=== PATIENT | female | born 1955 | race Caucasian/White ===

== ENCOUNTER 2020-02-21 12:33 | Inpatient (IN) | payer MEDICARE, MEDICAID ==
[2020-02-21] MEDS ORDERED: Vancomycin 1.5 GM in Sodium Chloride 0.9% 500 ML IV ONE (13:07)
[2020-02-21] MEDS ORDERED: Piperacillin/Tazobactam 4.5 GM in Sodium Chloride 0.9% 100 ML IV ONE (13:07)
[2020-02-21] MEDS ORDERED: Lactated Ringers 1,000 ML IV SCH (13:15)
--- NOTE | 2020-02-21 13:15 | EDM.PDOC ---
ED HPI GENERAL MEDICAL PROBLEM - General Chief Complaint: Lower Extremity Injury/Pain Stated Complaint: LEFT LEG SWOLLEN Time Seen by Provider: 02/21/20 12:40 Source of Information: Reports: Patient, Provider History Limitations: Reports: Altered Mental Status - History of Present Illness INITIAL COMMENTS - FREE TEXT/NARRATIVE: 64-year-old female history of intellectual disability, left tib-fib ORIF in 2009, presents with left leg pain and blistering for 2 days. She fell 5 days ago landing on her left knee. She normally ambulates with a walker. She denies fever, chills. She lives in a retirement. History is per caregiver. ROS: A 10-point review of systems, other than pertinent positives and negatives as stated per HPI, is otherwise negative PHYSICAL EXAM General: Alert at baseline, No distress HEENT: dry mucous membrane Neck: supple, no meningismus, no Kernig or Brudzinski Cardiac: S1S2 RRR Respiratory: CTAB, no crackles or rales, no wheezing Abdomen: Soft, nontender, no rebound or guarding, nondistended, no pulsatile mass. Back: nontender Musculoskeletal: NVI distally, left knee abrasion, left tib.fib diffusely tender with erythema and indurated with clear blisters of varying size Neuro: No focal deficits MEDICAL DECISION MAKING: I reviewed the patients past medical records, lab and radiographic findings. I discussed the case with family members. My differential diagnosis included: Cellulitis, necrotizing fasciitis. - Related Data Allergies Allergy/AdvReac Type Severity Reaction Status Date / Time No Known Allergies Allergy Verified 02/21/20 20:55 Home Meds: Home Meds Calcium Carbonate/Vitamin D3 [Calcium 600 + Vit D Tablet] 600 mg PO BID 11/07/16 [History] Divalproex Sodium [Depakote] 500 mg PO DAILY@14 11/07/16 [History] Escitalopram [Lexapro] 20 mg PO DAILY 11/07/16 [History] Fenofibrate Nanocrystallized [Tricor] 145 mg PO DAILY 11/07/16 [History] Lid Scrubs 1 pad TOP BID 11/07/16 [History] OLANZapine [ZyPREXA] 2.5 mg PO DAILY 11/07/16 [History] Polyethylene Glycol 3350 [MiraLAX] 8.5 gm PO DAILY 11/07/16 [History] Simvastatin [Zocor] 20 mg PO BEDTIME 11/07/16 [History] Sod,Ammonium,Potassium Lactate [Amlactin Ultra Body Cream] 1 unit TP BID PRN 11/07/16 [History] lamoTRIgine [Lamictal] 50 mg PO DAILY 11/07/16 [History] traZODone 50 mg PO BEDTIME 11/07/16 [History] Celecoxib [CeleBREX] 200 mg PO DAILY 02/21/20 [History] Diclofenac Sodium [Voltaren 1% Gel] 1 applic TP QID PRN 02/21/20 [History] Divalproex Sodium [Depakote] 750 mg PO DAILY 02/21/20 [History] Ezetimibe [Zetia] 10 mg PO DAILY 02/21/20 [History] Levothyroxine 125 mcg PO ACBREAKFAST 02/21/20 [History] OLANZapine [ZyPREXA] 10 mg PO DAILY@14 02/21/20 [History] OLANZapine [Zyprexa] 15 mg PO BEDTIME 02/21/20 [History] [place]-3/DHA/Epa/Fish Oil [Fish Oil 1,000 mg Softgel] 1,000 mg PO BID 02/21/20 [History] hydroCHLOROthiazide [Hydrochlorothiazide] 6.25 mg PO DAILY@08,12 02/21/20 [History] Sulfamethoxazole/Trimethoprim [Bactrim Ds Tablet] 1 each PO BID 5 Days #10 tablet 02/24/20 [Rx] Past Medical History HEENT History: Reports: Other (See Below) Other HEENT History: frequent eye infections, bilateral blindness Cardiovascular History: Reports: None Respiratory History: Reports: None Gastrointestinal History: Reports: None Genitourinary History: Reports: None [employer] History: Reports: None Musculoskeletal History: Reports: Arthritis, Fracture Neurological History: Reports: Other (See Below) Other Neuro History: developmentally disabled Psychiatric History: Reports: Dementia, Mood Swings, Other (See Below) Other Psychiatric History: self abusive behavior Endocrine/Metabolic History: Reports: Hypothyroidism Hematologic History: Reports: None Immunologic History: Reports: None Oncologic (Cancer) History: Reports: Breast Other Oncologic History: leiomyosarcoma- rt thigh, Retinobastoma, Dermatologic History: Reports: None - Infectious Disease History Infectious Disease History: Reports: None - Past Surgical History Head Surgeries/Procedures: Reports: None HEENT Surgical History: Reports: Cataract Surgery, Other (See Below) Other 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 Other Musculoskeletal Surgeries/Procedures:: tib/fib surgery Social & Family History - Family History Family Medical History: Noncontributory - Tobacco Use Smoking Status *Q: Never Smoker - Caffeine Use Caffeine Use: Reports: None - Recreational Drug Use Recreational Drug Use: No Review of Systems - Review of Systems Review Of Systems: See Below (see dictation) ED EXAM, GENERAL - Physical Exam Exam: See Below (see dictation) Course - Vital Signs Last Recorded V/S: Last Vital Signs Temp 98.1 F 02/24/20 07:55 Pulse 63 02/24/20 07:55 Resp 16 02/24/20 07:55 BP 111/68 02/24/20 07:55 Pulse Ox 96 02/24/20 07:55 - Orders/Labs/Meds Labs: Laboratory Tests 02/21/20 02/21/20 02/21/20 Range/Units 13:20 13:20 13:20 WBC 5.83 (4.0-11.0) K/uL RBC 4.37 (4.30-5.90) M/uL Hgb 13.2 (12.0-16.0) g/dL Hct 41.7 (36.0-46.0) % MCV 95.4 (80.0-98.0) fL MCH 30.2 (27.0-32.0) pg MCHC 31.7 (31.0-37.0) g/dL RDW Std Deviation 52.3 (28.0-62.0) fl RDW Coeff of Ct 15 (11.0-15.0) % Plt Count 143 L (150-400) K/uL MPV 9.00 (7.40-12.00) fL Neut % (Auto) 49.9 (48.0-80.0) % Lymph % (Auto) 37.6 (16.0-40.0) % [place] % (Auto) 9.4 (0.0-15.0) % Eos % (Auto) 2.6 (0.0-7.0) % Baso % (Auto) 0.5 (0.0-1.5) % Neut # (Auto) 2.9 (1.4-5.7) K/uL Lymph # (Auto) 2.2 (0.6-2.4) K/uL [place] # (Auto) 0.6 (0.0-0.8) K/uL Eos # (Auto) 0.2 (0.0-0.7) K/uL Baso # (Auto) 0.0 (0.0-0.1) K/uL Add Manual Diff Neutrophils % (Manual) (48.0-80.0) % Band Neutrophils % % Lymphocytes % (Manual) (16.0-40.0) % Monocytes % (Manual) (0.0-15.0) % Eosinophils % (Manual) (0.0-7.0) % Basophils % (Manual) (0.0-1.5) % Nucleated RBC % 0.0 /100WBC Absolute Seg Neuts (1.4-5.7) Band Neutrophils # Lymphocytes # (Manual) (0.6-2.4) Monocytes # (Manual) (0.0-0.8) Eosinophils # (Manual) (0.0-0.7) Basophils # (Manual) (0.0-0.1) Nucleated RBCs # 0 K/uL ESR 8 (0-29) mm/hr Lactate (0.20-2.00) mmol/L Sodium 144 (136-145) mmol/L Potassium 3.8 (3.5-5.1) mmol/L Chloride 104 (98-107) mmol/L Carbon Dioxide 33.9 H (21.0-32.0) mmol/L BUN 28 H (7.0-18.0) mg/dL Creatinine 1.1 H (0.6-1.0) mg/dL Est Cr Clr Drug Dosing 37.60 mL/min Estimated GFR (MDRD) 50.2 ml/min Glucose 104 (74-106) mg/dL Calcium 9.4 (8.5-10.1) mg/dL Total Bilirubin 0.3 (0.2-1.0) mg/dL AST 36 (15-37) IU/L ALT 43 (14-63) IU/L Alkaline Phosphatase 48 (46-116) U/L C-Reactive Protein 1.20 H (0.00-0.90) mg/dL B-Natriuretic Peptide (<100) PG/ML Total Protein 6.7 (6.4-8.2) g/dL Albumin 3.2 L (3.4-5.0) g/dL Globulin 3.5 (2.6-4.0) g/dL Albumin/Globulin Ratio 0.9 (0.9-1.6) Procalcitonin (<0.10) ng/mL 02/21/20 02/21/20 02/22/20 Range/Units 13:20 13:20 08:25 WBC 5.75 (4.0-11.0) K/uL RBC 4.61 (4.30-5.90) M/uL Hgb 14.2 (12.0-16.0) g/dL Hct 44.0 (36.0-46.0) % MCV 95.4 (80.0-98.0) fL MCH 30.8 (27.0-32.0) pg MCHC 32.3 (31.0-37.0) g/dL RDW Std Deviation 51.0 (28.0-62.0) fl RDW Coeff of Ct 15 (11.0-15.0) % Plt Count 143 L (150-400) K/uL MPV 9.20 (7.40-12.00) fL Neut % (Auto) (48.0-80.0) % Lymph % (Auto) (16.0-40.0) % [place] % (Auto) (0.0-15.0) % Eos % (Auto) (0.0-7.0) % Baso % (Auto) (0.0-1.5) % Neut # (Auto) (1.4-5.7) K/uL Lymph # (Auto) (0.6-2.4) K/uL [place] # (Auto) (0.0-0.8) K/uL Eos # (Auto) (0.0-0.7) K/uL Baso # (Auto) (0.0-0.1) K/uL Add Manual Diff YES Neutrophils % (Manual) 56 (48.0-80.0) % Band Neutrophils % 4 % Lymphocytes % (Manual) 31 (16.0-40.0) % Monocytes % (Manual) 5 (0.0-15.0) % Eosinophils % (Manual) 2 (0.0-7.0) % Basophils % (Manual) 2 H (0.0-1.5) % Nucleated RBC % /100WBC Absolute Seg Neuts 3.2 (1.4-5.7) Band Neutrophils # 0.2 Lymphocytes # (Manual) 1.8 (0.6-2.4) Monocytes # (Manual) 0.3 (0.0-0.8) Eosinophils # (Manual) 0.1 (0.0-0.7) Basophils # (Manual) 0.1 (0.0-0.1) Nucleated RBCs # K/uL ESR (0-29) mm/hr Lactate 1.1 (0.20-2.00) mmol/L Sodium (136-145) mmol/L Potassium (3.5-5.1) mmol/L Chloride (98-107) mmol/L Carbon Dioxide (21.0-32.0) mmol/L BUN (7.0-18.0) mg/dL Creatinine (0.6-1.0) mg/dL Est Cr Clr Drug Dosing mL/min Estimated GFR (MDRD) ml/min Glucose (74-106) mg/dL Calcium (8.5-10.1) mg/dL Total Bilirubin (0.2-1.0) mg/dL AST (15-37) IU/L ALT (14-63) IU/L Alkaline Phosphatase (46-116) U/L C-Reactive Protein (0.00-0.90) mg/dL B-Natriuretic Peptide (<100) PG/ML Total Protein (6.4-8.2) g/dL Albumin (3.4-5.0) g/dL Globulin (2.6-4.0) g/dL Albumin/Globulin Ratio (0.9-1.6) Procalcitonin 0.05 (<0.10) ng/mL 02/22/20 02/22/20 Range/Units 08:25 08:25 WBC (4.0-11.0) K/uL RBC (4.30-5.90) M/uL Hgb (12.0-16.0) g/dL Hct (36.0-46.0) % MCV (80.0-98.0) fL MCH (27.0-32.0) pg MCHC (31.0-37.0) g/dL RDW Std Deviation (28.0-62.0) fl RDW Coeff of Ct (11.0-15.0) % Plt Count (150-400) K/uL MPV (7.40-12.00) fL Neut % (Auto) (48.0-80.0) % Lymph % (Auto) (16.0-40.0) % [place] % (Auto) (0.0-15.0) % Eos % (Auto) (0.0-7.0) % Baso % (Auto) (0.0-1.5) % Neut # (Auto) (1.4-5.7) K/uL Lymph # (Auto) (0.6-2.4) K/uL [place] # (Auto) (0.0-0.8) K/uL Eos # (Auto) (0.0-0.7) K/uL Baso # (Auto) (0.0-0.1) K/uL Add Manual Diff Neutrophils % (Manual) (48.0-80.0) % Band Neutrophils % % Lymphocytes % (Manual) (16.0-40.0) % Monocytes % (Manual) (0.0-15.0) % Eosinophils % (Manual) (0.0-7.0) % Basophils % (Manual) (0.0-1.5) % Nucleated RBC % /100WBC Absolute Seg Neuts (1.4-5.7) Band Neutrophils # Lymphocytes # (Manual) (0.6-2.4) Monocytes # (Manual) (0.0-0.8) Eosinophils # (Manual) (0.0-0.7) Basophils # (Manual) (0.0-0.1) Nucleated RBCs # K/uL ESR (0-29) mm/hr Lactate (0.20-2.00) mmol/L Sodium 144 (136-145) mmol/L Potassium 4.1 (3.5-5.1) mmol/L Chloride 105 (98-107) mmol/L Carbon Dioxide 31.4 (21.0-32.0) mmol/L BUN 26 H (7.0-18.0) mg/dL Creatinine 1.1 H (0.6-1.0) mg/dL Est Cr Clr Drug Dosing 37.60 mL/min Estimated GFR (MDRD) 50.2 ml/min Glucose 121 H (74-106) mg/dL Calcium 9.3 (8.5-10.1) mg/dL Total Bilirubin 0.4 (0.2-1.0) mg/dL AST 42 H (15-37) IU/L ALT 40 (14-63) IU/L Alkaline Phosphatase 50 (46-116) U/L C-Reactive Protein (0.00-0.90) mg/dL B-Natriuretic Peptide 52 (<100) PG/ML Total Protein 6.8 (6.4-8.2) g/dL Albumin 3.3 L (3.4-5.0) g/dL Globulin 3.5 (2.6-4.0) g/dL Albumin/Globulin Ratio 0.9 (0.9-1.6) Procalcitonin (<0.10) ng/mL Meds: Medications Discontinued Medications Generic Name Dose Route Start Last Admin Trade Name Freq PRN Reason Stop Dose Admin Acetaminophen 325 mg 02/21/20 16:24 Tylenol PO Q6H PRN Pain Albuterol/Ipratropium 3 ml 02/21/20 15:51 02/21/20 15:59 Duoneb 3.0-0.5 Mg/3 Ml NEB 02/21/20 15:52 3 ml ONETIME ONE Administration Albuterol/Ipratropium Confirm 02/21/20 15:52 02/21/20 16:27 Duoneb 3.0-0.5 Mg/3 Ml Administered 02/21/20 15:53 Not Given Dose 3 ml .ROUTE .STK-MED ONE Divalproex Sodium 750 mg 02/22/20 09:00 02/24/20 08:25 Divalproex Sodium PO 750 mg DAILY DEDE Administration Divalproex Sodium 500 mg 02/22/20 14:00 02/23/20 14:10 Depakote PO 500 mg DAILY@1400 DEDE Administration Escitalopram Oxalate 20 mg 02/22/20 09:00 02/24/20 08:25 Lexapro PO 20 mg DAILY DEDE Administration Furosemide 40 mg 02/23/20 10:14 02/23/20 11:53 Lasix PO 02/23/20 10:15 40 mg ONETIME ONE Administration Heparin Sodium (Porcine) 5,000 units 02/21/20 16:30 02/24/20 04:42 Heparin Sodium SUBCUT 5,000 units Q12H DEDE Administration Hydrochlorothiazide 6.25 mg 02/22/20 08:00 Hydrochlorothiazide PO DAILY@0800,1200 [facility] Hydrochlorothiazide 6.25 mg 02/22/20 08:00 02/24/20 08:21 Hydrochlorothiazide PO 6.25 mg DAILY@0800,1200 DEDE Administration Lactated Ringer's 1,000 mls @ 500 mls/hr 02/21/20 13:15 02/21/20 13:49 Ringers, Lactated IV 500 mls/hr BOLUS DEDE Administration Piperacillin Sod/Tazobactam 100 mls @ 100 mls/hr 02/21/20 13:07 02/21/20 13:49 Sod 4.5 gm/ Sodium Chloride IV 02/21/20 14:06 100 mls/hr ONETIME ONE Administration Vancomycin HCl 1.5 gm/ Premix 300 mls @ 150 mls/hr 02/21/20 15:00 02/21/20 15:04 IV 02/21/20 16:59 150 mls/hr ONETIME ONE Administration Piperacillin Sod/Tazobactam 50 mls @ 100 mls/hr 02/21/20 20:00 02/24/20 08:18 Sod 3.375 gm/ Sodium Chloride IV 100 mls/hr Q6H DEDE Administration Vancomycin HCl 1 gm/ Sodium 250 mls @ 166.667 mls/hr 02/22/20 15:00 02/23/20 15:26 Chloride IV 166.667 mls/hr Q24H DEDE Administration Sodium Chloride 1,000 mls @ 100 mls/hr 02/21/20 16:55 02/21/20 18:43 Normal Saline IV 02/22/20 02:54 100 mls/hr CONTINUOUS ONE Administration Lamotrigine 50 mg 02/22/20 09:00 02/24/20 08:24 Lamotrigine PO 50 mg DAILY DEDE Administration Levothyroxine Sodium 125 mcg 02/22/20 07:30 02/24/20 06:42 Levothyroxine PO 125 mcg ACBREAKFAST DEDE Administration Lorazepam 2 mg 02/21/20 15:05 02/21/20 15:09 Ativan IVPUSH 02/21/20 15:06 2 mg ONETIME ONE Administration Lorazepam Confirm 02/21/20 15:06 02/21/20 15:13 Ativan Administered 02/21/20 15:07 Not Given Dose 2 mg .ROUTE .STK-MED ONE Lorazepam 1 mg 02/21/20 17:26 Ativan IVPUSH ONETIME PRN Agitation Olanzapine 2.5 mg 02/22/20 09:00 02/24/20 08:23 Zyprexa PO 2.5 mg DAILY DEDE Administration Olanzapine 10 mg 02/22/20 14:00 02/23/20 14:11 Zyprexa PO 10 mg DAILY@1400 DEDE Administration Olanzapine 15 mg 02/21/20 21:00 02/23/20 21:09 Zyprexa PO 15 mg BEDTIME DEDE Administration Sod,Ammonium, 1 each 02/21/20 17:02 Potassium Lactate [ TOP Amlactin Ultra Body BID PRN Cream] Dryness Polyethylene Glycol 8.5 gm 02/22/20 09:00 02/24/20 08:25 Miralax PO 8.5 gm DAILY DEDE Administration Simvastatin 20 mg 02/21/20 21:00 02/23/20 21:08 Zocor PO 20 mg BEDTIME DEDE Administration Trazodone HCl 50 mg 02/21/20 21:00 02/23/20 21:08 Trazodone PO 50 mg BEDTIME DEDE Administration Vancomycin HCl 1 dose 02/21/20 16:30 Pharmacy To Dose - Vancomycin .XX ASDIRECTED DEDE - Re-Assessments/Exams Free Text/Narrative Re-Assessment/Exam: 02/21/20 15:[address] Hayes, who agrees to assume care at this point. The hospitalist's documentation supersedes all other documentation on this patient with regard to any conflicts or discrepancies from this point forward. Any emergency conditions have been treated to the ability of the ED prior to admission. Departure - Departure Time of Disposition: 15:50 Disposition: Admitted As Inpatient 67 Condition: Good Clinical Impression: Cellulitis - Discharge Information *PRESCRIPTION DRUG MONITORING PROGRAM REVIEWED*: Not Applicable *COPY OF PRESCRIPTION DRUG MONITORING REPORT IN PATIENT ZORAN: Not Applicable Sepsis Event Note (ED) - Evaluation Sepsis Screening Result: No Definite Risk
[2020-02-21 14:09] LABS: CARBON DIOXIDE,CO2 33.9 mmol/L (21.0-32.0); POTASSIUM,K 3.8 mmol/L (3.5-5.1)
--- NOTE | 2020-02-21 14:27 | CT ---
CT left lower extremity Technique: Multiple axial sections were obtained through the left lower extremity inferior to the knee. Reconstructed coronal and sagittal images were obtained. Intravenous contrast not utilized. Findings: Diffuse subcutaneous edema is seen as well as skin thickening. Findings are most prominent above and around the ankle. Muse soft tissue findings are seen posteriorly. Joint space narrowing is seen within the lateral patellofemoral joint. No edema is seen within the muscles. Diffuse fatty infiltration is seen within the muscles. No acute bony abnormality is seen. Artifact noted from plate and screws within the distal tibia and fibula. Impression: 1. Diffuse subcutaneous edema as well as skin thickening. 2. Confluent soft tissue abnormality is seen posteriorly. Findings presumably represent diffuse edema and cellulitis. 3. No findings of soft tissue abscess. No findings of myositis. Diagnostic code #3 This report was dictated in MDT
[2020-02-21] MEDS ORDERED: LORazepam 2 MG/ML SDV IVPUSH ONE (15:05)
[2020-02-21] MEDS ORDERED: LORazepam 2 MG/ML SDV ONE (15:06)
[2020-02-21] MEDS ORDERED: Albuterol/Ipratropium 3.0-0.5 MG/3 ML Neb Soln NEB ONE (15:51)
[2020-02-21] MEDS ORDERED: Albuterol/Ipratropium 3.0-0.5 MG/3 ML Neb Soln ONE (15:52)
[2020-02-21] MEDS ORDERED: Acetaminophen 325 MG Tab PO PRN (16:24)
--- NOTE | 2020-02-21 16:26 | PCM.HP.2 ---
<Andria Ordaz - Last Filed: 02/22/20 17:54> H&P History of Present Illness - General Date of Service: 02/21/20 Admit Problem/Dx: Admission Diagnosis/Problem Admission Diagnosis/Problem Cellulitis Source of Information: Other (intermediate aide ) History Limitations: Reports: Other (Intellectual disability ) - History of Present Illness Initial Comments - Free Text/Narative: Patient is a 64-year-old female with a significant past medical history of moderate intellectual disability, previous left tib-fib status post ORIF in 2009 , mood disorder, hypothyroidism, leiomyosarcoma, retinoblastoma, hx of self- abuse NOS; presenting from [facility] ; presenting with left lower extremities redness swelling and pain. Per patient left leg started to hurt today after causing abrasion 2 days prior. Further history is being relayed to me via [facility] aide: States patient fell in the bathroom 2 days prior and noticed the redness today. Per nursing instructor: patient denied any fever , chills, body aches, other issues. ED course: X-ray lower extremity showed hardware in situ. CT of left lower extremity showed subcutaneous edema: Diffuse edema plus cellulitis; no concern for abscess formation at this time. Patient received 1 dose of vancomycin and Zosyn. Vitals stable. Patient was also being agitated; given 1 dose of Ativan. Per nursing instructor patient has received her psych meds for the day. Bedside: Information relayed to me via [facility] aide; no new information added. - Related Data Allergies/Adverse Reactions: Allergies Allergy/AdvReac Type Severity Reaction Status Date / Time No Known Allergies Allergy Verified 02/21/20 20:55 Home Medications: Home Meds Calcium Carbonate/Vitamin D3 [Calcium 600 + Vit D Tablet] 600 mg PO BID [History] Divalproex Sodium [Depakote] 500 mg PO DAILY@14 11/07/16 [History] Escitalopram [Lexapro] 20 mg PO DAILY 11/07/16 [History] Fenofibrate Nanocrystallized [Tricor] 145 mg PO DAILY 11/07/16 [History] Lid Scrubs 1 pad TOP BID 11/07/16 [History] OLANZapine [ZyPREXA] 2.5 mg PO DAILY 11/07/16 [History] Polyethylene Glycol 3350 [MiraLAX] 8.5 gm PO DAILY 11/07/16 [History] Simvastatin [Zocor] 20 mg PO BEDTIME 11/07/16 [History] Sod,Ammonium,Potassium Lactate [Amlactin Ultra Body Cream] 1 unit TP BID PRN [History] lamoTRIgine [Lamictal] 50 mg PO DAILY 11/07/16 [History] traZODone 50 mg PO BEDTIME 11/07/16 [History] Celecoxib [CeleBREX] 200 mg PO DAILY 02/21/20 [History] Diclofenac Sodium [Voltaren 1% Gel] 1 applic TP QID PRN 02/21/20 [History] Divalproex Sodium [Depakote] 750 mg PO DAILY 02/21/20 [History] Ezetimibe [Zetia] 10 mg PO DAILY 02/21/20 [History] Levothyroxine 125 mcg PO ACBREAKFAST 02/21/20 [History] OLANZapine [ZyPREXA] 10 mg PO DAILY@14 02/21/20 [History] OLANZapine [Zyprexa] 15 mg PO BEDTIME 02/21/20 [History] [place]-3/DHA/Epa/Fish Oil [Fish Oil 1,000 mg Softgel] 1,000 mg PO BID 02/21/20 [ History] hydroCHLOROthiazide [Hydrochlorothiazide] 6.25 mg PO DAILY@08,12 02/21/20 [ History] Sulfamethoxazole/Trimethoprim [Bactrim Ds Tablet] 1 each PO BID 5 Days #10 tablet 02/24/20 [Rx] Past Medical History HEENT History: Reports: Other (See Below) Other HEENT History: frequent eye infections, bilateral blindness Cardiovascular History: Reports: None Respiratory History: Reports: None Gastrointestinal History: Reports: None Genitourinary History: Reports: None RN ADMISSIONS History: Reports: None Musculoskeletal History: Reports: Arthritis, Fracture Neurological History: Reports: Other (See Below) Other Neuro History: developmentally disabled Psychiatric History: Reports: Dementia, Mood Swings, Other (See Below) Other Psychiatric History: self abusive behavior Endocrine/Metabolic History: Reports: Hypothyroidism Hematologic History: Reports: None Immunologic History: Reports: None Oncologic (Cancer) History: Reports: Breast Other Oncologic History: leiomyosarcoma- rt thigh, Retinobastoma, Dermatologic History: Reports: None - Infectious Disease History Infectious Disease History: Reports: None - Past Surgical History Head Surgeries/Procedures: Reports: None HEENT Surgical History: Reports: Cataract Surgery, Other (See Below) Other 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 Denies: Shortness of Breath, Pleuritic Chest Pain , Cough Cardiovascular: Reports: No Symptoms Gastrointestinal: Reports: No Symptoms Genitourinary: Reports: No Symptoms Musculoskeletal: Reports: Leg Pain Skin: Reports: Erythema Psychiatric: Reports: No Symptoms Neurological: Reports: Pre-Existing Deficit Exam - Exam Exam: See Below - Vital Signs Vital Signs: Last Vital Signs Temp 97.5 F 02/21/20 12:42 Pulse 68 02/21/20 12:42 Resp 18 02/21/20 12:42 BP 118/62 02/21/20 12:42 Pulse Ox 96 02/21/20 12:42 Weight: 74.843 kg - Exam Quality Assessment: No: Supplemental Oxygen General: Alert, Mild Distress HEENT: Other (baseline b/l eye loss ) Neck: Supple, Trachea Midline Lungs: Wheezing (possibly increasing effort 2ndary to anxiety when told she might stay in hospital ) Cardiovascular: Regular Rate, Regular Rhythm GI/Abdominal Exam: Soft, Non-Tender Skin: Other (Left lower extremity: erythema distal to left knee extending down into left ankle; redness in circumferential w. 2-3 small blister formations noticed on medial aspect. increasing warmth adn tenderness. +2 pitting edema; left ankle/foot chronic deformation ) Neuro Extensive - Mental Status: Alert - Patient Data Lab Results Last 24 hrs: Laboratory Results - last 24 hr 02/21/20 02/21/20 02/21/20 Range/Units 13:20 13:20 13:20 WBC 5.83 (4.0-11.0) K/uL RBC 4.37 (4.30-5.90) M/uL Hgb 13.2 (12.0-16.0) g/dL Hct 41.7 (36.0-46.0) % MCV 95.4 (80.0-98.0) fL MCH 30.2 (27.0-32.0) pg MCHC 31.7 (31.0-37.0) g/dL RDW Std Deviation 52.3 (28.0-62.0) fl RDW Coeff of Ct 15 (11.0-15.0) % Plt Count 143 L (150-400) K/uL MPV 9.00 (7.40-12.00) fL Neut % (Auto) 49.9 (48.0-80.0) % Lymph % (Auto) 37.6 (16.0-40.0) % [place] % (Auto) 9.4 (0.0-15.0) % Eos % (Auto) 2.6 (0.0-7.0) % Baso % (Auto) 0.5 (0.0-1.5) % Neut # (Auto) 2.9 (1.4-5.7) K/uL Lymph # (Auto) 2.2 (0.6-2.4) K/uL [place] # (Auto) 0.6 (0.0-0.8) K/uL Eos # (Auto) 0.2 (0.0-0.7) K/uL Baso # (Auto) 0.0 (0.0-0.1) K/uL Nucleated RBC % 0.0 /100WBC Nucleated RBCs # 0 K/uL ESR 8 (0-29) mm/hr Lactate (0.20-2.00) mmol/L Sodium 144 (136-145) mmol/L Potassium 3.8 (3.5-5.1) mmol/L Chloride 104 (98-107) mmol/L Carbon Dioxide 33.9 H (21.0-32.0) mmol/L BUN 28 H (7.0-18.0) mg/dL Creatinine 1.1 H (0.6-1.0) mg/dL Est Cr Clr Drug Dosing 37.60 mL/min Estimated GFR (MDRD) 50.2 ml/min Glucose 104 (74-106) mg/dL Calcium 9.4 (8.5-10.1) mg/dL Total Bilirubin 0.3 (0.2-1.0) mg/dL AST 36 (15-37) IU/L ALT 43 (14-63) IU/L Alkaline Phosphatase 48 (46-116) U/L C-Reactive Protein 1.20 H (0.00-0.90) mg/dL Total Protein 6.7 (6.4-8.2) g/dL Albumin 3.2 L (3.4-5.0) g/dL Globulin 3.5 (2.6-4.0) g/dL Albumin/Globulin Ratio 0.9 (0.9-1.6) 02/21/20 Range/Units 13:20 WBC (4.0-11.0) K/uL RBC (4.30-5.90) M/uL Hgb (12.0-16.0) g/dL Hct (36.0-46.0) % MCV (80.0-98.0) fL MCH (27.0-32.0) pg MCHC (31.0-37.0) g/dL RDW Std Deviation (28.0-62.0) fl RDW Coeff of Ct (11.0-15.0) % Plt Count (150-400) K/uL MPV (7.40-12.00) fL Neut % (Auto) (48.0-80.0) % Lymph % (Auto) (16.0-40.0) % [place] % (Auto) (0.0-15.0) % Eos % (Auto) (0.0-7.0) % Baso % (Auto) (0.0-1.5) % Neut # (Auto) (1.4-5.7) K/uL Lymph # (Auto) (0.6-2.4) K/uL [place] # (Auto) (0.0-0.8) K/uL Eos # (Auto) (0.0-0.7) K/uL Baso # (Auto) (0.0-0.1) K/uL Nucleated RBC % /100WBC Nucleated RBCs # K/uL ESR (0-29) mm/hr Lactate 1.1 (0.20-2.00) mmol/L Sodium (136-145) mmol/L Potassium (3.5-5.1) mmol/L Chloride (98-107) mmol/L Carbon Dioxide (21.0-32.0) mmol/L BUN (7.0-18.0) mg/dL Creatinine (0.6-1.0) mg/dL Est Cr Clr Drug Dosing mL/min Estimated GFR (MDRD) ml/min Glucose (74-106) mg/dL Calcium (8.5-10.1) mg/dL Total Bilirubin (0.2-1.0) mg/dL AST (15-37) IU/L ALT (14-63) IU/L Alkaline Phosphatase (46-116) U/L C-Reactive Protein (0.00-0.90) mg/dL Total Protein (6.4-8.2) g/dL Albumin (3.4-5.0) g/dL Globulin (2.6-4.0) g/dL Albumin/Globulin Ratio (0.9-1.6) Result Diagrams: 02/22/20 08:25 02/22/20 08:25 Piter Results Last 24 hrs: Microbiology 02/21/20 13:27 Anaerobic Blood Culture - Final Blood - Venous - Lab Draw Sepsis Event Note - Evaluation Sepsis Screening Result: No Definite Risk - Focused Exam Vital Signs: Vital Signs Temp Pulse Resp BP Pulse Ox 02/21/20 12:42 97.5 F 68 18 118/62 96 Date Exam was Performed: 02/22/20 Time Exam was Performed: 17:54 Problem List Initiated/Reviewed/Updated: Yes Orders Last 24hrs: Active Orders 24 hr Category Date Time Status Admission Status [Patient Status] [ADT] Stat ADT 02/21/20 14:56 Active RT Aerosol Therapy [RC] ASDIRECTED Care 02/21/20 15:51 Active Up With Assistance [RC] ASDIRECTED Care 02/21/20 16:25 Ordered Vital Signs [RC] PER UNIT ROUTINE Care 02/21/20 16:23 Ordered CULTURE BLOOD [BC] Stat Lab 02/21/20 13:20 Received CULTURE BLOOD [BC] Stat Lab 02/21/20 13:27 Results PROCALCITONIN [REF] Stat Lab 02/21/20 13:20 Received Acetaminophen [Tylenol] Med 02/21/20 16:24 Ordered 325 mg PO Q6H PRN Heparin Sodium Med 02/21/20 16:30 Ordered 5,000 units IVPUSH Q12H Lactated Ringers [Ringers, Lactated] 1,000 ml Med 02/21/20 13:15 Active IV BOLUS VANCOmycin/Water for INJ (PEG) [VANCOmycin 1.5 GM/300 Med 02/21/20 15:00 Active ML Premix] 1.5 gm Premix Bag 1 bag IV ONETIME Blood Culture x2 Reflex Set [OM.PC] Stat Oth 02/21/20 13:07 Ordered Medication Orders Acetaminophen (Tylenol) 325 mg PO Q6H PRN PRN Reason: Pain Heparin Sodium (Porcine) (Heparin Sodium) 5,000 units SUBCUT Q12H DEDE Lactated Ringer's (Ringers, Lactated) 1,000 mls @ 500 mls/hr IV BOLUS DEDE Last Admin: 02/21/20 13:49 Dose: 500 mls/hr Vancomycin HCl 1.5 gm/ Premix 300 mls @ 150 mls/hr IV ONETIME ONE Stop: 02/21/20 16:59 Last Admin: 02/21/20 15:04 Dose: 150 mls/hr Assessment/Plan Comment:: Assessment 1. Left lower extremity cellulitis with blister formation 2. Previous history of ORIF and corresponding limb in 2009 3. Past medical history of moderate intellectual disability, mood disorder, history of self abuse, history of retinoblastoma, hypothyroidism, anxiety. 4. Mild JAI. Plan Admit to observation. Code status: full code ; however awaiting records/ confirmation from [facility]. DVT: heparin subq 5000BID Omeprazole 20 bid vitals per routine. Up with assistance. Diet: regular Will continue home medications 1. LLE cellulitis: abscess formation r/o w. CT-scan; if pain worsening may consider U/S to DVT evaluation. Started pt. on Vancomycin+Zosyn for now; Blood cultures ordered. Lactate WNL, CBC WNL. Will continue to monitor for improvement 2. Moderate intellectual disability: continue home medications; will consider Ativan for agitation; aide states pt. can get agitated in new settings 3. Mild JAI: recheck CMP in AM. Hold Celebrex for now; continue IV maintenance fluids <Marielle Hayes - Last Filed: 02/27/20 14:52> H&P History of Present Illness - General Admit Problem/Dx: Admission Diagnosis/Problem Admission Diagnosis/Problem Cellulitis Exam - Vital Signs Vital Signs: Last Vital Signs Temp 36.7 C 02/24/20 07:55 Pulse 63 02/24/20 07:55 Resp 16 02/24/20 07:55 BP 111/68 02/24/20 07:55 Pulse Ox 96 02/24/20 07:55 - Patient Data Result Diagrams: 02/24/20 05:50 02/24/20 05:50 Piter Results Last 24 hrs: Microbiology 02/21/20 13:27 Aerobic Blood Culture - Final Blood - Venous - Lab Draw NO GROWTH AFTER 5 DAYS Anaerobic Blood Culture - Final 02/21/20 13:20 Aerobic Blood Culture - Final Blood - Venous NO GROWTH AFTER 5 DAYS Anaerobic Blood Culture - Final NO GROWTH AFTER 5 DAYS Assessment/Plan Comment:: I performed a history and physical exam of the patient and discussed management with resident. I have reviewed the residents note and agree with documented findings and plan unless otherwise specified in my note.
[2020-02-21] MEDS ORDERED: Sodium Chloride 0.9% 1,000 ML IV ONE (16:55)
[2020-02-21] MEDS ORDERED: [UNRECOGNIZED DRUG - OTHER] TOP PRN (17:02)
[2020-02-21] MEDS ORDERED: LORazepam 2 MG/ML SDV IVPUSH PRN (17:26)
[2020-02-21] MEDS: Heparin Sodium 5,000 Units/ML Vial SUBCUT SCH (18:53)
[2020-02-21] MEDS: Piperacillin/Tazobactam 3.375 GM in Sodium Chloride 0.9% 50 ML IV SCH (20:50)
[2020-02-21] MEDS: Simvastatin 20 MG Tab PO SCH (20:55)
[2020-02-21] MEDS: traZODone 50 MG Tab PO SCH (20:55)
[2020-02-21] MEDS: OLANZapine 5 MG Tab PO SCH (20:55)
[2020-02-22] MEDS: Piperacillin/Tazobactam 3.375 GM in Sodium Chloride 0.9% 50 ML IV SCH ×4 (01:07→22:16)
[2020-02-22] MEDS: Heparin Sodium 5,000 Units/ML Vial SUBCUT SCH ×2 (04:41→16:25)
[2020-02-22] MEDS: Levothyroxine 125 MCG Tab PO SCH (07:01)
[2020-02-22] MEDS: Hydrochlorothiazide 25 MG Tab PO SCH ×2 (07:53→13:11)
[2020-02-22] MEDS ORDERED: Hydrochlorothiazide 12.5 MG Cap PO SCH (08:00)
--- NOTE | 2020-02-22 08:47 | PCM.PN ---
- General Info Date of Service: 02/22/20 Subjective Update: Seen at bedside: not complaining of pain at this time. Labile mood;baseline for patient Requesting to go home at times Functional Status: Reports: Pain Controlled - Review of Systems General: Denies: No Symptoms, Fever, Weakness Pulmonary: Reports: No Symptoms Cardiovascular: Reports: No Symptoms Gastrointestinal: Reports: No Symptoms Genitourinary: Reports: No Symptoms Musculoskeletal: Reports: Leg Pain (improving ) Neurological: Reports: Pre-Existing Deficit Psychiatric: Reports: Other (mood lability ) - Patient Data Vitals - Most Recent: Last Vital Signs Temp 97.7 F 02/22/20 08:00 Pulse 76 02/22/20 08:00 Resp 20 02/22/20 08:00 BP 128/76 02/22/20 08:00 Pulse Ox 93 L 02/22/20 08:00 Weight - Most Recent: 79 kg I&O - Last 24 Hours: Intake & Output 02/21/20 02/22/20 02/22/20 22:59 06:59 14:59 Intake Total 1312 Output Total 600 Balance 712 Lab Results Last 24 Hours: Laboratory Results - last 24 hr 02/21/20 02/21/20 02/21/20 Range/Units 13:20 13:20 13:20 WBC 5.83 (4.0-11.0) K/uL RBC 4.37 (4.30-5.90) M/uL Hgb 13.2 (12.0-16.0) g/dL Hct 41.7 (36.0-46.0) % MCV 95.4 (80.0-98.0) fL MCH 30.2 (27.0-32.0) pg MCHC 31.7 (31.0-37.0) g/dL RDW Std Deviation 52.3 (28.0-62.0) fl RDW Coeff of Ct 15 (11.0-15.0) % Plt Count 143 L (150-400) K/uL MPV 9.00 (7.40-12.00) fL Neut % (Auto) 49.9 (48.0-80.0) % Lymph % (Auto) 37.6 (16.0-40.0) % [place] % (Auto) 9.4 (0.0-15.0) % Eos % (Auto) 2.6 (0.0-7.0) % Baso % (Auto) 0.5 (0.0-1.5) % Neut # (Auto) 2.9 (1.4-5.7) K/uL Lymph # (Auto) 2.2 (0.6-2.4) K/uL [place] # (Auto) 0.6 (0.0-0.8) K/uL Eos # (Auto) 0.2 (0.0-0.7) K/uL Baso # (Auto) 0.0 (0.0-0.1) K/uL Nucleated RBC % 0.0 /100WBC Nucleated RBCs # 0 K/uL ESR 8 (0-29) mm/hr Lactate (0.20-2.00) mmol/L Sodium 144 (136-145) mmol/L Potassium 3.8 (3.5-5.1) mmol/L Chloride 104 (98-107) mmol/L Carbon Dioxide 33.9 H (21.0-32.0) mmol/L BUN 28 H (7.0-18.0) mg/dL Creatinine 1.1 H (0.6-1.0) mg/dL Est Cr Clr Drug Dosing 37.60 mL/min Estimated GFR (MDRD) 50.2 ml/min Glucose 104 (74-106) mg/dL Calcium 9.4 (8.5-10.1) mg/dL Total Bilirubin 0.3 (0.2-1.0) mg/dL AST 36 (15-37) IU/L ALT 43 (14-63) IU/L Alkaline Phosphatase 48 (46-116) U/L C-Reactive Protein 1.20 H (0.00-0.90) mg/dL Total Protein 6.7 (6.4-8.2) g/dL Albumin 3.2 L (3.4-5.0) g/dL Globulin 3.5 (2.6-4.0) g/dL Albumin/Globulin Ratio 0.9 (0.9-1.6) 02/21/20 Range/Units 13:20 WBC (4.0-11.0) K/uL RBC (4.30-5.90) M/uL Hgb (12.0-16.0) g/dL Hct (36.0-46.0) % MCV (80.0-98.0) fL MCH (27.0-32.0) pg MCHC (31.0-37.0) g/dL RDW Std Deviation (28.0-62.0) fl RDW Coeff of Ct (11.0-15.0) % Plt Count (150-400) K/uL MPV (7.40-12.00) fL Neut % (Auto) (48.0-80.0) % Lymph % (Auto) (16.0-40.0) % [place] % (Auto) (0.0-15.0) % Eos % (Auto) (0.0-7.0) % Baso % (Auto) (0.0-1.5) % Neut # (Auto) (1.4-5.7) K/uL Lymph # (Auto) (0.6-2.4) K/uL [place] # (Auto) (0.0-0.8) K/uL Eos # (Auto) (0.0-0.7) K/uL Baso # (Auto) (0.0-0.1) K/uL Nucleated RBC % /100WBC Nucleated RBCs # K/uL ESR (0-29) mm/hr Lactate 1.1 (0.20-2.00) mmol/L Sodium (136-145) mmol/L Potassium (3.5-5.1) mmol/L Chloride (98-107) mmol/L Carbon Dioxide (21.0-32.0) mmol/L BUN (7.0-18.0) mg/dL Creatinine (0.6-1.0) mg/dL Est Cr Clr Drug Dosing mL/min Estimated GFR (MDRD) ml/min Glucose (74-106) mg/dL Calcium (8.5-10.1) mg/dL Total Bilirubin (0.2-1.0) mg/dL AST (15-37) IU/L ALT (14-63) IU/L Alkaline Phosphatase (46-116) U/L C-Reactive Protein (0.00-0.90) mg/dL Total Protein (6.4-8.2) g/dL Albumin (3.4-5.0) g/dL Globulin (2.6-4.0) g/dL Albumin/Globulin Ratio (0.9-1.6) Piter Results Last 24 Hours: Microbiology 02/21/20 13:27 Anaerobic Blood Culture - Final Blood - Venous - Lab Draw Med Orders - Current: Current Medications Acetaminophen (Tylenol) 325 mg PO Q6H PRN PRN Reason: Pain Divalproex Sodium (Divalproex Sodium) 750 mg PO DAILY [facility] Divalproex Sodium (Depakote) 500 mg PO DAILY@1400 [facility] Escitalopram Oxalate (Lexapro) 20 mg PO DAILY [facility] Heparin Sodium (Porcine) (Heparin Sodium) 5,000 units SUBCUT Q12H [facility] Last Admin: 02/22/20 04:41 Dose: 5,000 units Hydrochlorothiazide (Hydrochlorothiazide) 6.25 mg PO DAILY@0800,1200 [facility] Last Admin: 02/22/20 07:53 Dose: 6.25 mg Lactated Ringer's (Ringers, Lactated) 1,000 mls @ 500 mls/hr IV BOLUS [facility] Last Admin: 02/21/20 13:49 Dose: 500 mls/hr Piperacillin Sod/Tazobactam (Sod 3.375 gm/ Sodium Chloride) 50 mls @ 100 mls/ hr IV Q6H [facility] Last Admin: 02/22/20 07:15 Dose: 100 mls/hr Vancomycin HCl 1 gm/ Sodium (Chloride) 250 mls @ 166.667 mls/hr IV Q24H [facility] Lamotrigine (Lamotrigine) 50 mg PO DAILY [facility] Levothyroxine Sodium (Levothyroxine) 125 mcg PO ACBREAKFAST [facility] Last Admin: 02/22/20 07:01 Dose: 125 mcg Lorazepam (Ativan) 1 mg IVPUSH ONETIME PRN PRN Reason: Agitation Olanzapine (Zyprexa) 2.5 mg PO DAILY [facility] Olanzapine (Zyprexa) 10 mg PO DAILY@1400 [facility] Olanzapine (Zyprexa) 15 mg PO BEDTIME [facility] Last Admin: 02/21/20 20:55 Dose: 15 mg Sod,Ammonium, Potassium Lactate [ Amlactin Ultra Body Cream] 1 each TOP BID PRN PRN Reason: Dryness Polyethylene Glycol (Miralax) 8.5 gm PO DAILY [facility] Simvastatin (Zocor) 20 mg PO BEDTIME [facility] Last Admin: 02/21/20 20:55 Dose: 20 mg Trazodone HCl (Trazodone) 50 mg PO BEDTIME [facility] Last Admin: 02/21/20 20:55 Dose: 50 mg Vancomycin HCl (Pharmacy To Dose - Vancomycin) 1 dose .XX ASDIRECTED [facility]EDE Discontinued Medications Albuterol/Ipratropium (Duoneb 3.0-0.5 Mg/3 Ml) 3 ml NEB ONETIME ONE Stop: 02/21/20 15:52 Last Admin: 02/21/20 15:59 Dose: 3 ml Albuterol/Ipratropium (Duoneb 3.0-0.5 Mg/3 Ml) Confirm Administered Dose 3 ml .ROUTE .STK-MED ONE Stop: 02/21/20 15:53 Last Admin: 02/21/20 16:27 Dose: Not Given Hydrochlorothiazide (Hydrochlorothiazide) 6.25 mg PO DAILY@0800,1200 [facility] Piperacillin Sod/Tazobactam (Sod 4.5 gm/ Sodium Chloride) 100 mls @ 100 mls/hr IV ONETIME ONE Stop: 02/21/20 14:06 Last Admin: 02/21/20 13:49 Dose: 100 mls/hr Vancomycin HCl 1.5 gm/ Premix 300 mls @ 150 mls/hr IV ONETIME ONE Stop: 02/21/20 16:59 Last Admin: 02/21/20 15:04 Dose: 150 mls/hr Sodium Chloride (Normal Saline) 1,000 mls @ 100 mls/hr IV CONTINUOUS ONE Stop: 02/22/20 02:54 Last Admin: 02/21/20 18:43 Dose: 100 mls/hr Lorazepam (Ativan) 2 mg IVPUSH ONETIME ONE Stop: 02/21/20 15:06 Last Admin: 02/21/20 15:09 Dose: 2 mg Lorazepam (Ativan) Confirm Administered Dose 2 mg .ROUTE .STK-MED ONE Stop: 02/21/20 15:07 Last Admin: 02/21/20 15:13 Dose: Not Given - Exam Quality Assessment: No: Supplemental Oxygen General: Alert, Oriented, Other (lability of mood ; baseline ; no acute distress regarding pain of LLE ) Lungs: Clear to Auscultation, Normal Respiratory Effort Cardiovascular: Regular Rate, Regular Rhythm GI/Abdominal Exam: Soft Extremities: Other (left lower extremity: redness , swelling and blistering more or less unchanged from yesterday ) Neurological: No New Focal Deficit Psy/Mental Status: Labile Mood Sepsis Event Note - Evaluation Sepsis Screening Result: No Definite Risk - Focused Exam Vital Signs: Vital Signs Temp Pulse Resp BP Pulse Ox 02/22/20 08:00 97.7 F 76 20 128/76 93 L 02/22/20 04:00 97.5 F 63 20 127/80 95 02/22/20 00:26 97 F 57 L 22 H 125/71 93 L Date Exam was Performed: 02/22/20 Time Exam was Performed: 11:42 - Problem List Review Problem List Initiated/Reviewed/Updated: Yes - My Orders Last 24 Hours: My Active Orders 02/21/20 16:23 Vital Signs [RC] Q4H 02/21/20 16:24 Acetaminophen [Tylenol] 325 mg PO Q6H PRN 02/21/20 16:25 Up With Assistance [RC] ASDIRECTED 02/21/20 16:30 Heparin Sodium 5,000 units SUBCUT Q12H Pharmacy to Dose - Vancomycin 1 dose .XX ASDIRECTED 02/21/20 17:02 Patient's Own Medication [Ptom] 1 each TOP BID PRN 02/21/20 17:26 LORazepam [Ativan] 1 mg IVPUSH ONETIME PRN 02/21/20 20:00 Piperacillin/Tazobactam [Piperacil-Tazobact] 3.375 gm Sodium Chloride 0.9% [ Normal Saline] 50 ml IV Q6H 02/21/20 21:00 OLANZapine [ZyPREXA] 15 mg PO BEDTIME Simvastatin [Zocor] 20 mg PO BEDTIME traZODone 50 mg PO BEDTIME 02/21/20 Dinner Sodium Restricted Diet [DIET] 02/22/20 07:30 Levothyroxine 125 mcg PO ACBREAKFAST 02/22/20 08:00 hydroCHLOROthiazide 6.25 mg PO DAILY@0800,1200 02/22/20 08:25 CBC WITH AUTO DIFF [HEME] Stat COMPREHENSIVE METABOLIC PN,CMP [CHEM] Stat 02/22/20 09:00 Divalproex Sodium 750 mg PO DAILY Escitalopram [Lexapro] 20 mg PO DAILY OLANZapine [ZyPREXA] 2.5 mg PO DAILY lamoTRIgine 50 mg PO DAILY polyethylene glycoL 3350 [MiraLAX] 8.5 gm PO DAILY 02/22/20 14:00 Divalproex Sodium [Depakote] 500 mg PO DAILY@1400 OLANZapine [ZyPREXA] 10 mg PO DAILY@1400 02/22/20 15:00 Vancomycin [Vancocin] 1 gm Sodium Chloride 0.9% [Normal Saline (AdvBag)] 250 ml IV Q24H - Plan Plan:: Assessment 1. Left lower extremity cellulitis with blister formation 2. Previous history of ORIF and corresponding limb in 2009 3. Past medical history of moderate intellectual disability, mood disorder, history of self abuse, history of retinoblastoma, hypothyroidism, anxiety. 4. Mild JAI. Plan Admit to observation. Code status: full code ; however awaiting records/ confirmation from care home/guardian. Switched to inpatient status DVT: heparin subq 5000BID Omeprazole 20 bid vitals per routine. Up with assistance. Diet: regular Will continue home medications 1. LLE cellulitis: abscess formation r/o w. CT-scan; if pain worsening may consider U/S to DVT evaluation. Continue on Vancomycin+Zosyn for now; Blood cultures ordered. Lactate WNL, CBC WNL. Will continue to monitor for improvement 2. Moderate intellectual disability: continue home medications; will consider Ativan for agitation; aide states pt. can get agitated in new settings 3. Mild JAI: recheck CMP in AM. Hold Celebrex for now;
[2020-02-22] MEDS: Polyethylene Glycol 3350 Powder 17 GM Packet PO SCH (08:56)
[2020-02-22] MEDS: OLANZapine 5 MG Tab PO SCH ×3 (08:56→22:17)
[2020-02-22] MEDS: lamoTRIgine 25 MG Tab PO SCH (08:57)
[2020-02-22] MEDS: Escitalopram 10 MG Tab PO SCH (08:57)
[2020-02-22] MEDS: Divalproex Sodium Delayed-Release 250 MG Tab.CR PO SCH (08:58)
[2020-02-22 09:19] LABS: CARBON DIOXIDE,CO2 31.4 mmol/L (21.0-32.0); POTASSIUM,K 4.1 mmol/L (3.5-5.1)
[2020-02-22] MEDS: Divalproex Sodium Delayed-Release 500 MG Tab.CR PO SCH (14:13)
[2020-02-22] MEDS: traZODone 50 MG Tab PO SCH (22:16)
[2020-02-22] MEDS: Simvastatin 20 MG Tab PO SCH (22:16)
[2020-02-23] MEDS: Piperacillin/Tazobactam 3.375 GM in Sodium Chloride 0.9% 50 ML IV SCH ×4 (03:50→20:58)
[2020-02-23] MEDS: Heparin Sodium 5,000 Units/ML Vial SUBCUT SCH ×2 (03:52→17:09)
[2020-02-23 06:25] LABS: CARBON DIOXIDE,CO2 29.5 mmol/L (21.0-32.0)
[2020-02-23] MEDS: Levothyroxine 125 MCG Tab PO SCH (07:59)
[2020-02-23] MEDS: Hydrochlorothiazide 25 MG Tab PO SCH ×2 (07:59→11:53)
[2020-02-23] MEDS: Divalproex Sodium Delayed-Release 250 MG Tab.CR PO SCH (08:44)
[2020-02-23] MEDS: Polyethylene Glycol 3350 Powder 17 GM Packet PO SCH (08:45)
[2020-02-23] MEDS: lamoTRIgine 25 MG Tab PO SCH (08:45)
[2020-02-23] MEDS: Escitalopram 10 MG Tab PO SCH (08:45)
[2020-02-23] MEDS: OLANZapine 5 MG Tab PO SCH ×3 (08:46→21:09)
[2020-02-23] MEDS ORDERED: Furosemide 40 MG Tab PO ONE (10:14)
--- NOTE | 2020-02-23 11:30 | PCM.PN ---
- General Info Date of Service: 02/23/20 Subjective Update: No new complaints this AM - Review of Systems General: Reports: No Symptoms HEENT: Reports: No Symptoms Pulmonary: Reports: No Symptoms Cardiovascular: Reports: No Symptoms Gastrointestinal: Reports: No Symptoms Musculoskeletal: Reports: No Symptoms. Denies: Leg Pain Skin: Reports: No Symptoms Neurological: Reports: Pre-Existing Deficit - Patient Data Vitals - Most Recent: Last Vital Signs Temp 97.5 F 02/23/20 08:00 Pulse 63 02/23/20 08:00 Resp 20 02/23/20 08:00 BP 124/74 02/23/20 08:00 Pulse Ox 93 L 02/23/20 08:00 Weight - Most Recent: 74.843 kg I&O - Last 24 Hours: Intake & Output 02/22/20 02/23/20 02/23/20 22:59 06:59 14:59 Intake Total 1200 50 Balance 1200 50 Lab Results Last 24 Hours: Laboratory Results - last 24 hr 02/23/20 02/23/20 Range/Units 05:34 05:34 WBC 5.54 (4.0-11.0) K/uL RBC 4.08 L (4.30-5.90) M/uL Hgb 12.3 (12.0-16.0) g/dL Hct 39.1 (36.0-46.0) % MCV 95.8 (80.0-98.0) fL MCH 30.1 (27.0-32.0) pg MCHC 31.5 (31.0-37.0) g/dL RDW Std Deviation 53.3 (28.0-62.0) fl RDW Coeff of Ct 15 (11.0-15.0) % Plt Count 149 L (150-400) K/uL MPV 9.30 (7.40-12.00) fL Neut % (Auto) 46.2 L (48.0-80.0) % Lymph % (Auto) 38.4 (16.0-40.0) % [place] % (Auto) 10.5 (0.0-15.0) % Eos % (Auto) 4.2 (0.0-7.0) % Baso % (Auto) 0.7 (0.0-1.5) % Neut # (Auto) 2.6 (1.4-5.7) K/uL Lymph # (Auto) 2.1 (0.6-2.4) K/uL [place] # (Auto) 0.6 (0.0-0.8) K/uL Eos # (Auto) 0.2 (0.0-0.7) K/uL Baso # (Auto) 0.0 (0.0-0.1) K/uL Nucleated RBC % 0.0 /100WBC Nucleated RBCs # 0 K/uL Sodium 143 (136-145) mmol/L Potassium 4.0 (3.5-5.1) mmol/L Chloride 105 (98-107) mmol/L Carbon Dioxide 29.5 (21.0-32.0) mmol/L BUN 30 H (7.0-18.0) mg/dL Creatinine 1.2 H (0.6-1.0) mg/dL Est Cr Clr Drug Dosing 34.47 mL/min Estimated GFR (MDRD) 45.4 ml/min Glucose 121 H (74-106) mg/dL Calcium 8.8 (8.5-10.1) mg/dL Total Bilirubin 0.3 (0.2-1.0) mg/dL AST 45 H (15-37) IU/L ALT 27 (14-63) IU/L Alkaline Phosphatase 44 L (46-116) U/L Total Protein 6.3 L (6.4-8.2) g/dL Albumin 3.2 L (3.4-5.0) g/dL Globulin 3.8 (2.6-4.0) g/dL Albumin/Globulin Ratio 1.0 (0.9-1.6) Piter Results Last 24 Hours: Microbiology 02/21/20 13:27 Aerobic Blood Culture - Preliminary Blood - Venous - Lab Draw NO GROWTH AFTER 1 DAY Anaerobic Blood Culture - Final 02/21/20 13:20 Aerobic Blood Culture - Preliminary Blood - Venous NO GROWTH AFTER 1 DAY Anaerobic Blood Culture - Preliminary NO GROWTH AFTER 1 DAY Med Orders - Current: Current Medications Acetaminophen (Tylenol) 325 mg PO Q6H PRN PRN Reason: Pain Divalproex Sodium (Divalproex Sodium) 750 mg PO DAILY [facility] Last Admin: 02/23/20 08:44 Dose: 750 mg Divalproex Sodium (Depakote) 500 mg PO DAILY@1400 [facility] Last Admin: 02/22/20 14:13 Dose: 500 mg Escitalopram Oxalate (Lexapro) 20 mg PO DAILY [facility] Last Admin: 02/23/20 08:45 Dose: 20 mg Heparin Sodium (Porcine) (Heparin Sodium) 5,000 units SUBCUT Q12H [facility] Last Admin: 02/23/20 03:52 Dose: 5,000 units Hydrochlorothiazide (Hydrochlorothiazide) 6.25 mg PO DAILY@0800,1200 [facility] Last Admin: 02/23/20 07:59 Dose: 6.25 mg Lactated Ringer's (Ringers, Lactated) 1,000 mls @ 500 mls/hr IV BOLUS [facility] Last Admin: 02/21/20 13:49 Dose: 500 mls/hr Piperacillin Sod/Tazobactam (Sod 3.375 gm/ Sodium Chloride) 50 mls @ 100 mls/ hr IV Q6H [facility] Last Admin: 02/23/20 08:00 Dose: 100 mls/hr Vancomycin HCl 1 gm/ Sodium (Chloride) 250 mls @ 166.667 mls/hr IV Q24H [facility] Last Admin: 02/22/20 14:45 Dose: 166.667 mls/hr Lamotrigine (Lamotrigine) 50 mg PO DAILY [facility] Last Admin: 02/23/20 08:45 Dose: 50 mg Levothyroxine Sodium (Levothyroxine) 125 mcg PO ACBREAKFAST [facility] Last Admin: 02/23/20 07:59 Dose: 125 mcg Lorazepam (Ativan) 1 mg IVPUSH ONETIME PRN PRN Reason: Agitation Olanzapine (Zyprexa) 2.5 mg PO DAILY [facility] Last Admin: 02/23/20 08:46 Dose: 2.5 mg Olanzapine (Zyprexa) 10 mg PO DAILY@1400 [facility] Last Admin: 02/22/20 14:13 Dose: 10 mg Olanzapine (Zyprexa) 15 mg PO BEDTIME [facility] Last Admin: 02/22/20 22:17 Dose: 15 mg Sod,Ammonium, Potassium Lactate [ Amlactin Ultra Body Cream] 1 each TOP BID PRN PRN Reason: Dryness Polyethylene Glycol (Miralax) 8.5 gm PO DAILY [facility] Last Admin: 02/23/20 08:45 Dose: Not Given Simvastatin (Zocor) 20 mg PO BEDTIME [facility] Last Admin: 02/22/20 22:16 Dose: 20 mg Trazodone HCl (Trazodone) 50 mg PO BEDTIME [facility] Last Admin: 02/22/20 22:16 Dose: 50 mg Vancomycin HCl (Pharmacy To Dose - Vancomycin) 1 dose .XX ASDIRECTED [facility] Discontinued Medications Albuterol/Ipratropium (Duoneb 3.0-0.5 Mg/3 Ml) 3 ml NEB ONETIME ONE Stop: 02/21/20 15:52 Last Admin: 02/21/20 15:59 Dose: 3 ml Albuterol/Ipratropium (Duoneb 3.0-0.5 Mg/3 Ml) Confirm Administered Dose 3 ml .ROUTE .STK-MED ONE Stop: 02/21/20 15:53 Last Admin: 02/21/20 16:27 Dose: Not Given Furosemide (Lasix) 40 mg PO ONETIME ONE Stop: 02/23/20 10:15 Hydrochlorothiazide (Hydrochlorothiazide) 6.25 mg PO DAILY@0800,1200 [facility] Piperacillin Sod/Tazobactam (Sod 4.5 gm/ Sodium Chloride) 100 mls @ 100 mls/hr IV ONETIME ONE Stop: 02/21/20 14:06 Last Admin: 02/21/20 13:49 Dose: 100 mls/hr Vancomycin HCl 1.5 gm/ Premix 300 mls @ 150 mls/hr IV ONETIME ONE Stop: 02/21/20 16:59 Last Admin: 02/21/20 15:04 Dose: 150 mls/hr Sodium Chloride (Normal Saline) 1,000 mls @ 100 mls/hr IV CONTINUOUS ONE Stop: 02/22/20 02:54 Last Admin: 02/21/20 18:43 Dose: 100 mls/hr Lorazepam (Ativan) 2 mg IVPUSH ONETIME ONE Stop: 02/21/20 15:06 Last Admin: 02/21/20 15:09 Dose: 2 mg Lorazepam (Ativan) Confirm Administered Dose 2 mg .ROUTE .STK-MED ONE Stop: 02/21/20 15:07 Last Admin: 02/21/20 15:13 Dose: Not Given - Exam Quality Assessment: Supplemental Oxygen General: Alert, No Acute Distress HEENT: Mucous Membr. Moist/[place] Lungs: Clear to Auscultation, Normal Respiratory Effort Cardiovascular: Regular Rate, Regular Rhythm GI/Abdominal Exam: Soft, Non-Tender Back Exam: Full Range of Motion Extremities: Other (LLE: erythema improving and moving more infero-posteriorly since admission; blistering unchanged ; edema unchanged ) Skin: Warm Psy/Mental Status: Labile Mood Sepsis Event Note - Evaluation Sepsis Screening Result: No Definite Risk - Focused Exam Vital Signs: Vital Signs Temp Pulse Resp BP Pulse Ox 02/23/20 08:00 97.5 F 63 20 124/74 93 L 02/23/20 04:35 98.6 F 64 19 141/69 H 91 L 02/23/20 00:46 98 F 71 20 123/72 90 L Date Exam was Performed: 02/23/20 Time Exam was Performed: 11:32 - Problem List Review Problem List Initiated/Reviewed/Updated: Yes - My Orders Last 24 Hours: My Active Orders 02/22/20 10:44 Admission Status [Patient Status] [ADT] Routine 02/22/20 14:00 Divalproex Sodium [Depakote] 500 mg PO DAILY@1400 OLANZapine [ZyPREXA] 10 mg PO DAILY@1400 02/22/20 15:00 Vancomycin [Vancocin] 1 gm Sodium Chloride 0.9% [Normal Saline (AdvBag)] 250 ml IV Q24H 02/23/20 Breakfast Regular Diet [DIET] - Plan Plan:: Assessment 1. Left lower extremity cellulitis with blister formation 2. Previous history of ORIF and corresponding limb in 2009 3. Past medical history of moderate intellectual disability, mood disorder, history of self abuse, history of retinoblastoma, hypothyroidism, anxiety. 4. Mild JAI. Plan Admit to observation. Code status: full code ; however awaiting records/ confirmation from [facility]. DVT: heparin subq [id number] Omeprazole 20 bid vitals per routine. Up with assistance. Diet: regular Will continue home medications 1. LLE cellulitis: abscess formation r/o w. CT-scan; if pain worsening may consider U/S to DVT evaluation. Started pt. on Vancomycin+Zosyn for now; Blood cultures ordered. Lactate WNL, CBC WNL. Will continue to monitor for improvement Edema: one time PO dose of Lasix ordered to reduce swelling; will monitor 2. Moderate intellectual disability: continue home medications; will consider Ativan for agitation; aide states pt. can get agitated in new settings 3. Mild JAI: recheck CMP in AM. Hold Celebrex for now; continue IV maintenance fluids
[2020-02-23] MEDS: Divalproex Sodium Delayed-Release 500 MG Tab.CR PO SCH (14:10)
[2020-02-23] MEDS: traZODone 50 MG Tab PO SCH (21:08)
[2020-02-23] MEDS: Simvastatin 20 MG Tab PO SCH (21:08)
[2020-02-24] MEDS: Piperacillin/Tazobactam 3.375 GM in Sodium Chloride 0.9% 50 ML IV SCH ×2 (01:51→08:18)
[2020-02-24] MEDS: Heparin Sodium 5,000 Units/ML Vial SUBCUT SCH (04:42)
[2020-02-24 06:36] LABS: CARBON DIOXIDE,CO2 36.9 mmol/L (21.0-32.0); POTASSIUM,K 3.9 mmol/L (3.5-5.1)
[2020-02-24] MEDS: Levothyroxine 125 MCG Tab PO SCH (06:42)
[2020-02-24] MEDS: Hydrochlorothiazide 25 MG Tab PO SCH (08:21)
[2020-02-24] MEDS: OLANZapine 5 MG Tab PO SCH (08:23)
[2020-02-24] MEDS: lamoTRIgine 25 MG Tab PO SCH (08:24)
[2020-02-24] MEDS: Escitalopram 10 MG Tab PO SCH (08:25)
[2020-02-24] MEDS: Divalproex Sodium Delayed-Release 250 MG Tab.CR PO SCH (08:25)
[2020-02-24] MEDS: Polyethylene Glycol 3350 Powder 17 GM Packet PO SCH (08:25)
--- NOTE | 2020-02-24 14:05 | PCM.DCSUM1 ---
<Andria Ordaz - Last Filed: 02/24/20 13:58> Discharge Summary - Hospital Course Free Text/Narrative:: 64 y.o female w. moderate intellectual disability, PMH of retinoblastoma, ; presenting w. 2-3 days of LLE edema, redness and blister formation on the media- inferior aspect after scraping her skin/left alas in the bathroom 2-3 days prior.. pt. at baseline did have a ORIF of corresponding TIB/Fib. pt is a resident at [facility] and accompanied by her AIde. ED course: CT of lower extremity did not show any signs of subcutaneous air bubble formation ; pt started on Vancomycin and Zosyns. no leukocytosis appreciated. Hosiptal course: recived daily IV abs. w. interval imrpovemnt daily of erythema and blister formation Swelling however responded much slower and a dose of lasix PO 40 prescribed; day of dischargel redness, and swelling improved. Blood cultures negative and discharged ghome on BActrim. Based off antibiogram and clinical response; Bactrim prescribed w. follow up with PCP on upcoming . Creatinien elevation was appreciated on day 3 of admission but was deemed in response to the Concurrent use of IV vancomycin and Zosyn;l opt refused IV fluids at times and was agitated (intellecual diability) but was amenable with aide and nursing staff redirections and supervision. otherwise responded well to abx. and treatment and discharged in stable condition w. PO abx and close follow up. Aide agreed to plan agreed to discharge. - Discharge Data Discharge Date: 02/24/20 Discharge Disposition: Home, Self-Care 01 Condition: Stable - Referral to Home Health Primary Care Physician: Donna Bergeron DO - Patient Instructions Diet: Heart Healthy Diet Notify Provider of: Fever, Swelling and Redness, Drainage, Nausea and/or Vomiting - Discharge Plan *PRESCRIPTION DRUG MONITORING PROGRAM REVIEWED*: Not Applicable *COPY OF PRESCRIPTION DRUG MONITORING REPORT IN PATIENT ZORAN: Not Applicable Prescriptions/Med Rec: Sulfamethoxazole/Trimethoprim [Bactrim Ds Tablet] 1 each PO BID 5 Days #10 tablet Home Medications: Home Meds Calcium Carbonate/Vitamin D3 [Calcium 600 + Vit D Tablet] 600 mg PO BID [History] Divalproex Sodium [Depakote] 500 mg PO DAILY@14 11/07/16 [History] Escitalopram [Lexapro] 20 mg PO DAILY 11/07/16 [History] Fenofibrate Nanocrystallized [Tricor] 145 mg PO DAILY 11/07/16 [History] Lid Scrubs 1 pad TOP BID 11/07/16 [History] OLANZapine [ZyPREXA] 2.5 mg PO DAILY 11/07/16 [History] Polyethylene Glycol 3350 [MiraLAX] 8.5 gm PO DAILY 11/07/16 [History] Simvastatin [Zocor] 20 mg PO BEDTIME 11/07/16 [History] Sod,Ammonium,Potassium Lactate [Amlactin Ultra Body Cream] 1 unit TP BID PRN [History] lamoTRIgine [Lamictal] 50 mg PO DAILY 11/07/16 [History] traZODone 50 mg PO BEDTIME 11/07/16 [History] Celecoxib [CeleBREX] 200 mg PO DAILY 02/21/20 [History] Diclofenac Sodium [Voltaren 1% Gel] 1 applic TP QID PRN 02/21/20 [History] Divalproex Sodium [Depakote] 750 mg PO DAILY 02/21/20 [History] Ezetimibe [Zetia] 10 mg PO DAILY 02/21/20 [History] Levothyroxine 125 mcg PO ACBREAKFAST 02/21/20 [History] OLANZapine [ZyPREXA] 10 mg PO DAILY@14 02/21/20 [History] OLANZapine [Zyprexa] 15 mg PO BEDTIME 02/21/20 [History] Jackson-3/DHA/Epa/Fish Oil [Fish Oil 1,000 mg Softgel] 1,000 mg PO BID 02/21/20 [ History] hydroCHLOROthiazide [Hydrochlorothiazide] 6.25 mg PO DAILY@08,12 02/21/20 [ History] Sulfamethoxazole/Trimethoprim [Bactrim Ds Tablet] 1 each PO BID 5 Days #10 tablet 02/24/20 [Rx] Patient Handouts: Cellulitis, Adult, [id number], Sulfamethoxazole; Trimethoprim, SMX-TMP tablets Referrals: [facility] [Outside] Donna Bergeron DO [Primary Care Provider] - 03/01/20 9:45 am (Arrive 15 minutes with photo ID, insurance card, and discharge paperwork. If you are not early they will not see you. ) - Discharge Summary/Plan Comment DC Time >30 min.: No - Patient Data Vitals - Most Recent: Last Vital Signs Temp 98.1 F 02/24/20 07:55 Pulse 63 02/24/20 07:55 Resp 16 02/24/20 07:55 BP 111/68 02/24/20 07:55 Pulse Ox 96 02/24/20 07:55 Weight - Most Recent: 74.843 kg I&O - Last 24 hours: Intake & Output 02/23/20 02/24/20 02/24/20 22:59 06:59 14:59 Intake Total 350 1350 Output Total 1000 Balance 350 350 Lab Results - Last 24 hrs: Laboratory Results - last 24 hr 02/21/20 02/24/20 02/24/20 Range/Units 13: 05:50 05:50 WBC 6.72 (4.0-11.0) K/uL RBC 4.21 L (4.30-5.90) M/uL Hgb 12.5 (12.0-16.0) g/dL Hct 40.2 (36.0-46.0) % MCV 95.5 (80.0-98.0) fL MCH 29.7 (27.0-32.0) pg MCHC 31.1 (31.0-37.0) g/dL RDW Std Deviation 52.4 (28.0-62.0) fl RDW Coeff of Ct 15 (11.0-15.0) % Plt Count 162 (150-400) K/uL MPV 9.20 (7.40-12.00) fL Neut % (Auto) 46.6 L (48.0-80.0) % Lymph % (Auto) 39.6 (16.0-40.0) % [place] % (Auto) 9.5 (0.0-15.0) % Eos % (Auto) 3.7 (0.0-7.0) % Baso % (Auto) 0.6 (0.0-1.5) % Neut # (Auto) 3.1 (1.4-5.7) K/uL Lymph # (Auto) 2.7 H (0.6-2.4) K/uL [place] # (Auto) 0.6 (0.0-0.8) K/uL Eos # (Auto) 0.3 (0.0-0.7) K/uL Baso # (Auto) 0.0 (0.0-0.1) K/uL Nucleated RBC % 0.0 /100WBC Nucleated RBCs # 0 K/uL Sodium 143 (136-145) mmol/L Potassium 3.9 (3.5-5.1) mmol/L Chloride 103 (98-107) mmol/L Carbon Dioxide 36.9 H (21.0-32.0) mmol/L BUN 33 H (7.0-18.0) mg/dL Creatinine 1.4 H (0.6-1.0) mg/dL Est Cr Clr Drug Dosing 29.54 mL/min Estimated GFR (MDRD) 38.0 ml/min Glucose 91 (74-106) mg/dL Calcium 9.2 (8.5-10.1) mg/dL Total Bilirubin 0.3 (0.2-1.0) mg/dL AST 34 (15-37) IU/L ALT 34 (14-63) IU/L Alkaline Phosphatase 45 L (46-116) U/L Total Protein 6.4 (6.4-8.2) g/dL Albumin 3.0 L (3.4-5.0) g/dL Globulin 3.4 (2.6-4.0) g/dL Albumin/Globulin Ratio 0.9 (0.9-1.6) Procalcitonin 0.05 (<0.10) ng/mL CAR[facility]OS Results - Last 24 hrs: Microbiology 02/21/20 13:27 Aerobic Blood Culture - Preliminary Blood - Venous - Lab Draw NO GROWTH AFTER 3 DAYS Anaerobic Blood Culture - Final 02/21/20 13:20 Aerobic Blood Culture - Preliminary Blood - Venous NO GROWTH AFTER 3 DAYS Anaerobic Blood Culture - Preliminary NO GROWTH AFTER 3 DAYS Med Orders - Current: Current Medications Discontinued Medications Acetaminophen (Tylenol) 325 mg PO Q6H PRN PRN Reason: Pain Albuterol/Ipratropium (Duoneb 3.0-0.5 Mg/3 Ml) 3 ml NEB ONETIME ONE Stop: 02/21/20 15:52 Last Admin: 02/21/20 15:59 Dose: 3 ml Albuterol/Ipratropium (Duoneb 3.0-0.5 Mg/3 Ml) Confirm Administered Dose 3 ml .ROUTE .STK-MED ONE Stop: 02/21/20 15:53 Last Admin: 02/21/20 16:27 Dose: Not Given Divalproex Sodium (Divalproex Sodium) 750 mg PO DAILY [facility] Last Admin: 02/24/20 08:25 Dose: 750 mg Divalproex Sodium (Depakote) 500 mg PO DAILY@1400 [facility] Last Admin: 02/23/20 14:10 Dose: 500 mg Escitalopram Oxalate (Lexapro) 20 mg PO DAILY [facility] Last Admin: 02/24/20 08:25 Dose: 20 mg Furosemide (Lasix) 40 mg PO ONETIME ONE Stop: 02/23/20 10:15 Last Admin: 02/23/20 11:53 Dose: 40 mg Heparin Sodium (Porcine) (Heparin Sodium) 5,000 units SUBCUT Q12H [facility] Last Admin: 02/24/20 04:42 Dose: 5,000 units Hydrochlorothiazide (Hydrochlorothiazide) 6.25 mg PO DAILY@0800,1200 [facility] Hydrochlorothiazide (Hydrochlorothiazide) 6.25 mg PO DAILY@0800,1200 [facility] Last Admin: 02/24/20 08:21 Dose: 6.25 mg Lactated Ringer's (Ringers, Lactated) 1,000 mls @ 500 mls/hr IV BOLUS [facility] Last Admin: 02/21/20 13:49 Dose: 500 mls/hr Piperacillin Sod/Tazobactam (Sod 4.5 gm/ Sodium Chloride) 100 mls @ 100 mls/hr IV ONETIME ONE Stop: 02/21/20 14:06 Last Admin: 02/21/20 13:49 Dose: 100 mls/hr Vancomycin HCl 1.5 gm/ Premix 300 mls @ 150 mls/hr IV ONETIME ONE Stop: 02/21/20 16:59 Last Admin: 02/21/20 15:04 Dose: 150 mls/hr Piperacillin Sod/Tazobactam (Sod 3.375 gm/ Sodium Chloride) 50 mls @ 100 mls/ hr IV Q6H [facility] Last Admin: 02/24/20 08:18 Dose: 100 mls/hr Vancomycin HCl 1 gm/ Sodium (Chloride) 250 mls @ 166.667 mls/hr IV Q24H [facility] Last Admin: 02/23/20 15:26 Dose: 166.667 mls/hr Sodium Chloride (Normal Saline) 1,000 mls @ 100 mls/hr IV CONTINUOUS ONE Stop: 02/22/20 02:54 Last Admin: 02/21/20 18:43 Dose: 100 mls/hr Lamotrigine (Lamotrigine) 50 mg PO DAILY [facility] Last Admin: 02/24/20 08:24 Dose: 50 mg Levothyroxine Sodium (Levothyroxine) 125 mcg PO ACBREAKFAST [facility] Last Admin: 02/24/20 06:42 Dose: 125 mcg Lorazepam (Ativan) 2 mg IVPUSH ONETIME ONE Stop: 02/21/20 15:06 Last Admin: 02/21/20 15:09 Dose: 2 mg Lorazepam (Ativan) Confirm Administered Dose 2 mg .ROUTE .STK-MED ONE Stop: 02/21/20 15:07 Last Admin: 02/21/20 15:13 Dose: Not Given Lorazepam (Ativan) 1 mg IVPUSH ONETIME PRN PRN Reason: Agitation Olanzapine (Zyprexa) 2.5 mg PO DAILY [facility] Last Admin: 02/24/20 08:23 Dose: 2.5 mg Olanzapine (Zyprexa) 10 mg PO DAILY@1400 [facility] Last Admin: 02/23/20 14:11 Dose: 10 mg Olanzapine (Zyprexa) 15 mg PO BEDTIME [facility] Last Admin: 02/23/20 21:09 Dose: 15 mg Sod,Ammonium, Potassium Lactate [ Amlactin Ultra Body Cream] 1 each TOP BID PRN PRN Reason: Dryness Polyethylene Glycol (Miralax) 8.5 gm PO DAILY [facility] Last Admin: 02/24/20 08:25 Dose: 8.5 gm Simvastatin (Zocor) 20 mg PO BEDTIME [facility] Last Admin: 02/23/20 21:08 Dose: 20 mg Trazodone HCl (Trazodone) 50 mg PO BEDTIME [facility] Last Admin: 02/23/20 21:08 Dose: 50 mg Vancomycin HCl (Pharmacy To Dose - Vancomycin) 1 dose .XX ASDIRECTED [facility] <Delfino Castellano J - Last Filed: 02/26/20 14:06> Discharge Summary - Referral to Home Health Primary Care Physician: Donna Bergeron DO - Patient Data Vitals - Most Recent: Last Vital Signs Temp 36.7 C 02/24/20 07:55 Pulse 63 02/24/20 07:55 Resp 16 02/24/20 07:55 BP 111/68 02/24/20 07:55 Pulse Ox 96 02/24/20 07:55 [facility]LOS Results - Last 24 hrs: Microbiology 02/21/20 13:27 Aerobic Blood Culture - Final Blood - Venous - Lab Draw NO GROWTH AFTER 5 DAYS Anaerobic Blood Culture - Final 02/21/20 13:20 Aerobic Blood Culture - Final Blood - Venous NO GROWTH AFTER 5 DAYS Anaerobic Blood Culture - Final NO GROWTH AFTER 5 DAYS Med Orders - Current: Current Medications Discontinued Medications Acetaminophen (Tylenol) 325 mg PO Q6H PRN PRN Reason: Pain Albuterol/Ipratropium (Duoneb 3.0-0.5 Mg/3 Ml) 3 ml NEB ONETIME ONE Stop: 02/21/20 15:52 Last Admin: 02/21/20 15:59 Dose: 3 ml Albuterol/Ipratropium (Duoneb 3.0-0.5 Mg/3 Ml) Confirm Administered Dose 3 ml .ROUTE .STK-MED ONE Stop: 02/21/20 15:53 Last Admin: 02/21/20 16:27 Dose: Not Given Divalproex Sodium (Divalproex Sodium) 750 mg PO DAILY [facility] Last Admin: 02/24/20 08:25 Dose: 750 mg Divalproex Sodium (Depakote) 500 mg PO DAILY@1400 [facility] Last Admin: 02/23/20 14:10 Dose: 500 mg Escitalopram Oxalate (Lexapro) 20 mg PO DAILY [facility] Last Admin: 02/24/20 08:25 Dose: 20 mg Furosemide (Lasix) 40 mg PO ONETIME ONE Stop: 02/23/20 10:15 Last Admin: 02/23/20 11:53 Dose: 40 mg Heparin Sodium (Porcine) (Heparin Sodium) 5,000 units SUBCUT Q12H [facility] Last Admin: 02/24/20 04:42 Dose: 5,000 units Hydrochlorothiazide (Hydrochlorothiazide) 6.25 mg PO DAILY@0800,1200 [facility] Hydrochlorothiazide (Hydrochlorothiazide) 6.25 mg PO DAILY@0800,1200 [facility] Last Admin: 02/24/20 08:21 Dose: 6.25 mg Lactated Ringer's (Ringers, Lactated) 1,000 mls @ 500 mls/hr IV BOLUS [facility] Last Admin: 02/21/20 13:49 Dose: 500 mls/hr Piperacillin Sod/Tazobactam (Sod 4.5 gm/ Sodium Chloride) 100 mls @ 100 mls/hr IV ONETIME ONE Stop: 02/21/20 14:06 Last Admin: 02/21/20 13:49 Dose: 100 mls/hr Vancomycin HCl 1.5 gm/ Premix 300 mls @ 150 mls/hr IV ONETIME ONE Stop: 02/21/20 16:59 Last Admin: 02/21/20 15:04 Dose: 150 mls/hr Piperacillin Sod/Tazobactam (Sod 3.375 gm/ Sodium Chloride) 50 mls @ 100 mls/ hr IV Q6H [facility] Last Admin: 02/24/20 08:18 Dose: 100 mls/hr Vancomycin HCl 1 gm/ Sodium (Chloride) 250 mls @ 166.667 mls/hr IV Q24H [facility] Last Admin: 02/23/20 15:26 Dose: 166.667 mls/hr Sodium Chloride (Normal Saline) 1,000 mls @ 100 mls/hr IV CONTINUOUS ONE Stop: 02/22/20 02:54 Last Admin: 02/21/20 18:43 Dose: 100 mls/hr Lamotrigine (Lamotrigine) 50 mg PO DAILY [facility] Last Admin: 02/24/20 08:24 Dose: 50 mg Levothyroxine Sodium (Levothyroxine) 125 mcg PO ACBREAKFAST [facility] Last Admin: 02/24/20 06:42 Dose: 125 mcg Lorazepam (Ativan) 2 mg IVPUSH ONETIME ONE Stop: 02/21/20 15:06 Last Admin: 02/21/20 15:09 Dose: 2 mg Lorazepam (Ativan) Confirm Administered Dose 2 mg .ROUTE .STK-MED ONE Stop: 02/21/20 15:07 Last Admin: 02/21/20 15:13 Dose: Not Given Lorazepam (Ativan) 1 mg IVPUSH ONETIME PRN PRN Reason: Agitation Olanzapine (Zyprexa) 2.5 mg PO DAILY [facility] Last Admin: 02/24/20 08:23 Dose: 2.5 mg Olanzapine (Zyprexa) 10 mg PO DAILY@1400 [facility] Last Admin: 02/23/20 14:11 Dose: 10 mg Olanzapine (Zyprexa) 15 mg PO BEDTIME [facility] Last Admin: 02/23/20 21:09 Dose: 15 mg Sod,Ammonium, Potassium Lactate [ Amlactin Ultra Body Cream] 1 each TOP BID PRN PRN Reason: Dryness Polyethylene Glycol (Miralax) 8.5 gm PO DAILY [facility] Last Admin: 02/24/20 08:25 Dose: 8.5 gm Simvastatin (Zocor) 20 mg PO BEDTIME [facility] Last Admin: 02/23/20 21:08 Dose: 20 mg Trazodone HCl (Trazodone) 50 mg PO BEDTIME [facility] Last Admin: 02/23/20 21:08 Dose: 50 mg Vancomycin HCl (Pharmacy To Dose - Vancomycin) 1 dose .XX ASDIRECTED [facility] - Free Text/Narrative Note: I have seen and evaluated the patient with the resident. I have discussed findings and treatment plan with resident. I agree with the assessment and plan as outlined in the following note.
== END 2020-02-24 12:30 | disposition home or self-care (01) | DRG 603 ==
LOC: MW.ED 12:33 → MW.MS 14:56 → OBSVTOIN 02-22 10:44 → MW.MS 02-22 10:45
PROVIDERS: ADMIT Student in an Organized Health Care Education/Training Program; ATTEND Student in an Organized Health Care Education/Training Program
DX: L03.116 Cellulitis of left lower limb (principal); Z87.81 Personal history of (healed) traumatic fracture; N17.9 Acute kidney failure, unspecified; E03.9 Hypothyroidism, unspecified; F39 Unspecified mood [affective] disorder; F03.90 Unspecified dementia, unspecified severity, without behavioral disturbance, psychotic disturbance, mood disturbance, and anxiety; H54.7 Unspecified visual loss; H54.3 Unqualified visual loss, both eyes; M19.90 Unspecified osteoarthritis, unspecified site; F71 Moderate intellectual disabilities; Z85.831 Personal history of malignant neoplasm of soft tissue; F41.9 Anxiety disorder, unspecified; Z85.3 Personal history of malignant neoplasm of breast; Z98.49 Cataract extraction status, unspecified eye; Z79.890 Hormone replacement therapy; Z79.899 Other long term (current) drug therapy; Z85.840 Personal history of malignant neoplasm of eye
CPT/HCPCS: 36415 ×2; 73700; 80053 ×2; 83605; 83880; 84145; 85025 ×2; 85652; 86140; 87040 ×2; 94640; 96365; 96366; 96367; 96372 ×2; 96375; 96376 ×2; 99284; A9270 ×10; G0378 ×2; J1644 ×2; J2060; J2543 ×4; J3370; J7030; J7050 ×4; J7120; 99283; J7620-GY

== ENCOUNTER 2020-05-08 13:16 | Emergency (ER) | payer MEDICARE, MEDICAID, OTHER ==
[2020-05-08] MEDS ORDERED: Sodium Chloride 0.9% 2.5 ML Syringe FLUSH PRN (13:27)
[2020-05-08] MEDS ORDERED: Sodium Chloride 0.9% 10 ML Syringe FLUSH PRN (13:27)
--- NOTE | 2020-05-08 13:32 | EDM.PDOC ---
ED HPI GENERAL MEDICAL PROBLEM - General Chief Complaint: Respiratory Problem Stated Complaint: SOB Time Seen by Provider: 05/08/20 13:21 Source of Information: Reports: Other (Staff at retirement) History Limitations: Reports: Physical Impairment, Other (Mental illness, developmental delay) - History of Present Illness INITIAL COMMENTS - FREE TEXT/NARRATIVE: History of present illness: 64-year-old female presenting with difficulty breathing since this morning, increased work of breathing and tachycardia. The patient is apparently residing in a retirement due to her developmental delay/mental illness. History is primarily taken from the staff member accompanying the patient as the patient is unable to tell me any of her symptoms or past medical history. Denies chest pain. Denies leg pain although she does have some left lower extremity swelling which staff member reports comes and goes. They are in a retirement where there has been a previous positive COVID Review of systems: As per history of present illness and below otherwise all systems reviewed and negative. Past medical history: As per history of present illness and as reviewed below otherwise non contributory. Retinoblastoma, mental illness Surgical history: As per history of present illness and as reviewed below otherwise noncontributory. See nursing notes Social history: No reported history of drug or alcohol abuse. No tobacco Family history: As per history of present illness and as reviewed below otherwise noncontributory. Physical exam: GEN: no acute distress, well appearing, appears developmentally delayed HEENT: Atraumatic, normocephalic, mucous membranes dry, abnormal eye appearance Neck: supple, nontender, trachea midline. Lungs: No respiratory distress. Inspiratory and expiratory wheezes, tachypneic, hypoxic 86 to 88% on arrival here, started on 2 L nasal cannula and now 92 to 93% Heart: Tachycardic Abdomen: Soft, nondistended, nontender. Back: nontender Extremities: Lower extremity 2+ pitting edema, no calf tenderness, does appear slightly discolored. Right lower extremity unremarkable and nontender. Neurovascularly intact. Neuro: Awake, alert, patient at baseline per staff member, minimally verbal, answers some yes or no questions, unable to give any of her history or past medical/surgical history, medications, or HPI. Neuro Exam otherwise nonfocal. Skin: warm, dry, no lesions Diagnostics: [] Therapeutics: [] MDM: Impression: [] Plan: [] Definitive disposition and diagnosis as appropriate pending reevaluation and review of above. - Related Data Allergies Allergy/AdvReac Type Severity Reaction Status Date / Time No Known Allergies Allergy Verified 05/08/20 13:26 Home Meds: Home Meds Calcium Carbonate/Vitamin D3 [Calcium 600 + Vit D Tablet] 1 tab PO BID 11/07/16 [History] Divalproex Sodium [Depakote] 500 mg PO DAILY@14 11/07/16 [History] Escitalopram [Lexapro] 20 mg PO QAM 11/07/16 [History] Fenofibrate Nanocrystallized [Tricor] 145 mg PO DAILY 11/07/16 [History] Lid Scrubs 1 pad TOP BID 11/07/16 [History] OLANZapine [ZyPREXA] 2.5 mg PO QAM 11/07/16 [History] Polyethylene Glycol 3350 [MiraLAX] 17 gm PO DAILY PRN 11/07/16 [History] Simvastatin [Zocor] 20 mg PO BEDTIME 11/07/16 [History] lamoTRIgine [Lamictal] 50 mg PO DAILY 11/07/16 [History] traZODone 50 mg PO BEDTIME 11/07/16 [History] Celecoxib [CeleBREX] 200 mg PO DAILY 02/21/20 [History] Diclofenac Sodium [Voltaren 1% Gel] 1 applic TP QID PRN 02/21/20 [History] Divalproex Sodium [Depakote] 750 mg PO QAM 02/21/20 [History] Ezetimibe [Zetia] 10 mg PO DAILY 02/21/20 [History] Levothyroxine 125 mcg PO ACBREAKFAST 02/21/20 [History] OLANZapine [ZyPREXA] 10 mg PO DAILY@14 02/21/20 [History] OLANZapine [Zyprexa] 15 mg PO BEDTIME 02/21/20 [History] [place]-3/DHA/Epa/Fish Oil [Fish Oil 1,000 mg Softgel] 1,000 mg PO BID 02/21/20 [History] Ammonium Lactate [Amlactin 12% Lotion] 1 applic TOP BID 05/08/20 [History] Furosemide [Lasix] 10 mg PO BID 05/08/20 [History] Past Medical History HEENT History: Reports: Other (See Below) Other HEENT History: frequent eye infections, bilateral blindness Cardiovascular History: Reports: None Respiratory History: Reports: None Gastrointestinal History: Reports: None Genitourinary History: Reports: None TRA[employer] MECH[employer]IC History: Reports: None Musculoskeletal History: Reports: Arthritis, Fracture Neurological History: Reports: Other (See Below) Other Neuro History: developmentally disabled Psychiatric History: Reports: Dementia, Mood Swings, Other (See Below) Other Psychiatric History: self abusive behavior Endocrine/Metabolic History: Reports: Hypothyroidism Hematologic History: Reports: None Immunologic History: Reports: None Oncologic (Cancer) History: Reports: Breast Other Oncologic History: leiomyosarcoma- rt thigh, Retinobastoma, Dermatologic History: Reports: None - Infectious Disease History Infectious Disease History: Reports: None - Past Surgical History Head Surgeries/Procedures: Reports: None HEENT Surgical History: Reports: Cataract Surgery, Other (See Below) 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 Chest x-ray without acute abnormality seen. Patient on 5 L oxygen by nasal cannula and breathing is improved. COVID swab positive. CT angios performed which shows no pneumonia or pulmonary embolism. Will admit the patient Case discussed with Dr. Hayes, who does not feel that the patient can be admitted here as we do not have any COVID treatment options for medications. This was also confirmed with nursing field service supervisor and pharmacist. Attempted to transfer the patient. All the nearest hospitals have no available beds. The nearest available hospital is in [place]. Case was discussed with COVID manager endoscopy at [facility] who accepts the case. While the patient was awaiting transfer to [place], she did have increasing oxygen requirement and increased work of breathing. Her oxygen administration was initially adjusted upward, however she did continue to have some difficulty breathing and therefore she was started on BiPAP, which she was tolerating well and breathing did improve significantly. Decreased work of breathing. She will also be given inline DuoNeb. Last Recorded V/S: Last Vital Signs Temp 99.8 F 05/08/20 22:08 Pulse 85 05/08/20 22:08 Resp 23 H 05/08/20 22:08 BP 114/70 05/08/20 22:08 Pulse Ox 91 L 05/08/20 22:08 - Orders/Labs/Meds Orders: Active Orders 24 hr Category Date Time Status Wang Catheter Insertion [Insert Urinary Catheter] [OM. Care 05/08/20 19:15 Ordered PC] Q24H CULTURE BLOOD [BC] Stat Lab 05/08/20 13:36 Received CULTURE BLOOD [BC] Stat Lab 05/08/20 13:47 Received BiPAP [RESPCARE] Stat Oth 05/08/20 19:12 Active Blood Culture x2 Reflex Set [OM.PC] Stat Oth 05/08/20 13:27 Ordered Saline Lock Insert [OM.PC] Stat Oth 05/08/20 13:27 Ordered Labs: Laboratory Tests 05/08/20 05/08/20 05/08/20 Range/Units 13:36 13:36 13:36 WBC 4.98 (4.0-11.0) K/uL RBC 4.66 (4.30-5.90) M/uL Hgb 13.6 (12.0-16.0) g/dL Hct 42.9 (36.0-46.0) % MCV 92.1 (80.0-98.0) fL MCH 29.2 (27.0-32.0) pg MCHC 31.7 (31.0-37.0) g/dL RDW Std Deviation 48.2 (28.0-62.0) fl RDW Coeff of Ct 14 (11.0-15.0) % Plt Count 110 L (150-400) K/uL MPV 8.90 (7.40-12.00) fL Neut % (Auto) 65.2 (48.0-80.0) % Lymph % (Auto) 16.5 (16.0-40.0) % [place] % (Auto) 16.9 H (0.0-15.0) % Eos % (Auto) 1.0 (0.0-7.0) % Baso % (Auto) 0.4 (0.0-1.5) % Neut # (Auto) 3.3 (1.4-5.7) K/uL Lymph # (Auto) 0.8 (0.6-2.4) K/uL [place] # (Auto) 0.8 (0.0-0.8) K/uL Eos # (Auto) 0.1 (0.0-0.7) K/uL Baso # (Auto) 0.0 (0.0-0.1) K/uL Nucleated RBC % 0.0 /100WBC Nucleated RBCs # 0 K/uL Sodium 141 (136-145) mmol/L Potassium 3.8 (3.5-5.1) mmol/L Chloride 103 (98-107) mmol/L Carbon Dioxide 29.7 (21.0-32.0) mmol/L BUN 27 H (7.0-18.0) mg/dL Creatinine 1.3 H (0.6-1.0) mg/dL Est Cr Clr Drug Dosing TNP Estimated GFR (MDRD) 41.4 ml/min Glucose 118 H (74-106) mg/dL Calcium 9.4 (8.5-10.1) mg/dL Total Bilirubin 0.3 (0.2-1.0) mg/dL AST 109 H (15-37) IU/L ALT 72 H (14-63) IU/L Alkaline Phosphatase 47 (46-116) U/L Troponin I < 0.050 (0.000-0.056) ng/mL B-Natriuretic Peptide 23 (<100) PG/ML Total Protein 6.7 (6.4-8.2) g/dL Albumin 3.4 (3.4-5.0) g/dL Globulin 3.3 (2.6-4.0) g/dL Albumin/Globulin Ratio 1.0 (0.9-1.6) SARS Virus RNA (PCR) (NEGATIVE) 05/08/20 Range/Units 14:16 WBC (4.0-11.0) K/uL RBC (4.30-5.90) M/uL Hgb (12.0-16.0) g/dL Hct (36.0-46.0) % MCV (80.0-98.0) fL MCH (27.0-32.0) pg MCHC (31.0-37.0) g/dL RDW Std Deviation (28.0-62.0) fl RDW Coeff of Ct (11.0-15.0) % Plt Count (150-400) K/uL MPV (7.40-12.00) fL Neut % (Auto) (48.0-80.0) % Lymph % (Auto) (16.0-40.0) % [place] % (Auto) (0.0-15.0) % Eos % (Auto) (0.0-7.0) % Baso % (Auto) (0.0-1.5) % Neut # (Auto) (1.4-5.7) K/uL Lymph # (Auto) (0.6-2.4) K/uL [place] # (Auto) (0.0-0.8) K/uL Eos # (Auto) (0.0-0.7) K/uL Baso # (Auto) (0.0-0.1) K/uL Nucleated RBC % /100WBC Nucleated RBCs # K/uL Sodium (136-145) mmol/L Potassium (3.5-5.1) mmol/L Chloride (98-107) mmol/L Carbon Dioxide (21.0-32.0) mmol/L BUN (7.0-18.0) mg/dL Creatinine (0.6-1.0) mg/dL Est Cr Clr Drug Dosing Estimated GFR (MDRD) ml/min Glucose (74-106) mg/dL Calcium (8.5-10.1) mg/dL Total Bilirubin (0.2-1.0) mg/dL AST (15-37) IU/L ALT (14-63) IU/L Alkaline Phosphatase (46-116) U/L Troponin I (0.000-0.056) ng/mL B-Natriuretic Peptide (<100) PG/ML Total Protein (6.4-8.2) g/dL Albumin (3.4-5.0) g/dL Globulin (2.6-4.0) g/dL Albumin/Globulin Ratio (0.9-1.6) SARS Virus RNA (PCR) POSITIVE H (NEGATIVE) Meds: Medications Discontinued Medications Generic Name Dose Route Start Last Admin Trade Name Freq PRN Reason Stop Dose Admin Albuterol/Ipratropium Confirm 05/08/20 19:41 05/08/20 19:56 Duoneb 3.0-0.5 Mg/3 Ml Administered 05/08/20 19:42 3 ml Dose Administration 3 ml .ROUTE .STK-MED ONE Dexamethasone 6 mg 05/08/20 19:46 05/08/20 20:07 Dexamethasone IVPUSH 05/08/20 19:47 6 mg ONETIME ONE Administration Iopamidol 75 ml 05/08/20 19:30 05/08/20 19:30 Isovue-370 (76%) IVPUSH 05/08/20 19:31 75 ml ONETIME STA Administration Sodium Chloride 10 ml 05/08/20 13:27 Saline Flush FLUSH ASDIRECTED PRN Keep Vein Open Sodium Chloride 2.5 ml 05/08/20 13:27 Saline Flush FLUSH ASDIRECTED PRN Keep Vein Open - Re-Assessments/Exams Free Text/Narrative Re-Assessment/Exam: 05/08/20 17:[address] Hayes, admitting hospitalist, she request that the patient be transferred and not admit here as we do not have redesmivir, convalescent plasma or any other potential COVID treatments. The patient is doing well on 5 L nasal cannula which was increased from 2 L just for patient's comfort as her O2 was already 93% on 2 L. Therefore we will dial down/titrate down the O2 concentration. The nurses confirmed with the patient's retirement that the patient is indeed a full code. 05/08/20 18:17 No beds available at [facility], [facility], [facility], and therefore case discussed with [facility]. 05/08/20 18:[address] Abigail Whitlock, manager endoscopy caring for all COVID patients at this time. She agrees with plan for transfer and accepts admission. Patient does not need ICU at this time, [facility] floor is her recommendation. The patient is now tolerating 2 L of O2, oxygen saturation 96 to 98%. 05/08/20 18:34 Linda, the nursing field service supervisor did update the patient's power of prosecuting attorney/guardian. Patient's primary guardian is Bassem Young, office phone [phone], 05/08/20 19:13 The patient has been doing well on 2 L, however now having worsening breathing. Does appear to have increased work of breathing. Oxygen was increased to 5 L. However patient still having some increased work of breathing. Will start on BiPAP. [facility] called to transport the patient by air instead of ground due to distance and potential for decline on the way transfer as the patient has had some worsening of her breathing. They will activate the flight crew. Ground transfer canceled. 05/08/20 19:[address] Hollis, the now current ICU/COVID physician on-call at [facility] currently. Updated him on the patient's change in status and that she is now on BiPAP and will now be sent via fixed wing aircraft. He did request also give 6 mg IV Decadron one-time prior to transfer. This will be given now. Agrees with plan to continue transfer. Air has already been called and is on the way. Departure - Departure Time of Disposition: 17:24 Disposition: DC/Tfer to [facility] 02 Clinical Impression: COVID-19, Dyspnea, Hypoxia - Discharge Information Referrals: Donna Bergeron DO [Primary Care Provider] - Forms: ED Department Discharge Critical Care Note - Critical Care Note Total Time (mins): 35 Comments: Dyspnea, COVID, hypoxia, increased O2 requirement and work of breathing, started on BiPAP, transferred Sepsis Event Note (ED) - Evaluation Sepsis Screening Result: No Definite Risk - Focused Exam Vital Signs: Vital Signs Temp Pulse Resp BP Pulse Ox 05/08/20 22:08 99.8 F 85 23 H 114/70 91 L 05/08/20 21:45 77 21 H 103/50 L 97 05/08/20 21:11 90 24 H 107/64 94 L 05/08/20 20:53 86 24 H 105/60 95 05/08/20 20:45 100.1 F 88 16 114/60 94 L - My Orders Last 24 Hours: My Active Orders 05/08/20 13:27 Blood Culture x2 Reflex Set [OM.PC] Stat Saline Lock Insert [OM.PC] Stat 05/08/20 13:36 CULTURE BLOOD [BC] Stat 05/08/20 13:47 CULTURE BLOOD [BC] Stat 05/08/20 19:12 BiPAP [RESPCARE] Stat 05/08/20 19:15 Wang Catheter Insertion [Insert Urinary Catheter] [OM.PC] Q24H - Assessment/Plan Last 24 Hours: My Active Orders 05/08/20 13:27 Blood Culture x2 Reflex Set [OM.PC] Stat Saline Lock Insert [OM.PC] Stat 05/08/20 13:36 CULTURE BLOOD [BC] Stat 05/08/20 13:47 CULTURE BLOOD [BC] Stat 05/08/20 19:12 BiPAP [RESPCARE] Stat 05/08/20 19:15 Wang Catheter Insertion [Insert Urinary Catheter] [OM.PC] Q24H
[2020-05-08 14:17] LABS: BLOOD UREA NITROGEN,BUN 27 mg/dL (7.0-18.0); CARBON DIOXIDE,CO2 29.7 mmol/L (21.0-32.0); CHLORIDE,CL 103 mmol/L (98-107); GLUCOSE RANDOM 118 mg/dL (74-106); POTASSIUM,K 3.8 mmol/L (3.5-5.1); SODIUM,NA 141 mmol/L (136-145)
--- NOTE | 2020-05-08 14:18 | US ---
Left lower extremity deep venous ultrasound: Duplex and color Doppler evaluation was obtained of the left common femoral, superficial femoral, popliteal, posterior tibial and anterior tibial veins. Comparison: No prior venous imaging is available. Findings: Normal compression and Doppler blood flow is seen within the deep veins. Impression: 1. No evidence of deep venous thrombosis with left lower extremity. Diagnostic code #1 This report was dictated in MDT
--- NOTE | 2020-05-08 14:57 | CR ---
Chest: Portable view of the chest was obtained. Comparison: No prior chest imaging is available. Heart size at the upper limits of normal. Tortuous thoracic aorta is seen. Lungs are clear no acute parenchymal change. Bony structures are grossly intact. Impression: 1. Nothing acute is appreciated on portable chest x-ray. Diagnostic code #2 This report was dictated in MDT
--- NOTE | 2020-05-08 16:50 | CT ---
INDICATION: Shortness of breath; patient is positive for COVID-19 . Comparison: None. TECHNIQUE: CT angio chest with intravenous contrast; CT abdomen with intravenous contrast; coronal and sagittal reformats. FINDINGS: No CT evidence of acute or chronic pulmonary thromboembolism. No abnormal mediastinal or hilar lymphadenopathy. Normal size cardiac silhouette without any evidence of pericardial effusion. No evidence of pleural effusion or chest wall pathology. No evidence of pulmonary alveolar infiltrates. Diffuse fatty infiltration of the liver. No focal hepatic or splenic pathology. No pancreatic pathology. Gallbladder is unremarkable. No adrenal pathology. No kidney stones or obstructive uropathy. No retroperitoneal lymphadenopathy. No evidence of abdominal ascites. IMPRESSION: 1. No CT evidence of pulmonary thromboembolism. 2. No evidence of pulmonary alveolar infiltrates. 3. Diffuse fatty infiltration of the liver. 4. Negative CT chest and abdomen with intravenous contrast otherwise. Please note that all CT scans at this facility use dose modulation, iterative reconstruction, and/or weight-based dosing when appropriate to reduce radiation dose to as low as reasonably achievable. Dictated by May Lay MD @ May 08 2020 4:44PM Signed by Dr. May Lay @ May 08 2020 4:49PM
[2020-05-08] MEDS ORDERED: Iopamidol 755 Mg/ML 100 ML Bottle IVPUSH STA (19:30)
[2020-05-08] MEDS ORDERED: Albuterol/Ipratropium 3.0-0.5 MG/3 ML Neb Soln ONE (19:41)
[2020-05-08] MEDS ORDERED: Dexamethasone 10 MG/ML SDV IVPUSH ONE (19:46)
== END 2020-05-08 22:50 ==
LOC: MW.ED 13:16
DX: U07.1 COVID-19 (principal); R09.02 Hypoxemia; F03.90 Unspecified dementia, unspecified severity, without behavioral disturbance, psychotic disturbance, mood disturbance, and anxiety; E03.9 Hypothyroidism, unspecified; Z79.899 Other long term (current) drug therapy
CPT/HCPCS: 36415; 51702; 71045; 71275; 80053; 83880; 84484; 85025; 87040; 93005; 93971; 94640; 96374; 99285; J1100; Q9967; U0002; 99291; J7620-GY